=== PATIENT | female | born 1970 | race Caucasian/White ===

== ENCOUNTER 2017-08-29 08:36 | Inpatient (IN) | payer BC ==
[~2017-08-29 08:36] MED LIST: Acetaminophen 1,000 MG in Premix Bag 1 BAG IV SCH; Famotidine 20 MG/2 ML SDV IVPUSH SCH; Ketorolac 30 MG/ML SDV IVPUSH SCH; Ropivacaine 49.25 ML, Ketorolac 30 MG, EPINEPHrine 0.5 MG, cloNIDine 80 MCG in Sodium C... INJECT SCH; Scopolamine 1.5 MG Transdermal Patch TRDERM SCH; Tranexamic Acid 4,000 MG in Sodium Chloride 0.9% 100 ML IV SCH; ceFAZolin 2 GM in Premix Bag 1 BAG IV SCH; oxyCODONE ER 20 MG TAB.ER PO SCH
[2017-08-29] MEDS ORDERED: Ondansetron 4 MG/2 ML SDV ONE (09:12)
[2017-08-29] MEDS ORDERED: Propofol 200 MG/20 ML SDV ONE ×2 (09:12→11:45)
[2017-08-29] MEDS ORDERED: fentaNYL 100 MCG/2 ML SDV ONE (09:12)
[2017-08-29] MEDS ORDERED: Midazolam 1 MG/ML 2 ML SDV ONE (09:12)
[2017-08-29] MEDS: Lactated Ringers 1,000 ML IV SCH ×2 (10:00→14:36)
[2017-08-29] MEDS ORDERED: ceFAZolin 1 GM Vial ONE (10:39)
[2017-08-29] MEDS ORDERED: Sodium Chloride 0.9% 20 ML ONE (10:39)
[2017-08-29] MEDS ORDERED: Ondansetron 4 MG/2 ML SDV IV PRN (10:46)
[2017-08-29] MEDS ORDERED: Aluminum Hydroxide/Magnesium Hydroxide/Simethicone Susp 30 ML Cup PO PRN (10:47)
[2017-08-29] MEDS ORDERED: RANITIDINE HCL 150 MG PO PRN (10:49)
--- NOTE | 2017-08-29 10:49 | PCM.PREANE ---
Preanesthetic Assessment - Procedure Proposed Procedure: Right Total Knee Replacement - Anesthesia/Transfusion/Family Hx Anesthesia History: Prior Anesthesia Without Reaction Other Type of Anesthesia Reaction Comment: Denies any known problem in past Family History of Anesthesia Reaction: No Transfusion History: No Prior Transfusion(s) - Review of Systems General: No Symptoms Pulmonary: No Symptoms, Other (prior smoker) Cardiovascular: Other (HTN-treated) Gastrointestinal: Other (s/p bypass; still with morbid obesity) Neurological: Gait Disturbance (tayo to knee pain) Other: Reports: None - Physical Assessment NPO Status Date: 08/28/17 NPO Status Time: 23:00 O2 Sat by Pulse Oximetry: 99 Respiratory Rate: 16 Vital Signs: Last Vital Signs Temp 98.8 F 08/29/17 10:00 Pulse 74 08/29/17 10:00 Resp 16 08/29/17 10:00 BP 144/88 H 08/29/17 10:00 Pulse Ox 99 08/29/17 10:00 Height: 5 ft 3 in Weight: 190 lb ASA Class: 3 Mental Status: Alert & Oriented x3 Airway Class: Mallampati = 2 Dentition: Reports: Normal Dentition Thyro-Mental Finger Breadths: 3 Mouth Opening Finger Breadths: 3 ROM/Head Extension: Full Lungs: Clear to Auscultation, Normal Respiratory Effort Cardiovascular: Regular Rate, Regular Rhythm, No Murmurs - Lab Values: Laboratory Last Values Urine HCG, Qual NEGATIVE (NEGATIVE) 08/29/17 09:30 - Allergies Allergies/Adverse Reactions: Allergies Allergy/AdvReac Type Severity Reaction Status Date / Time latex Allergy Rash Verified 10/27/16 10:00 naproxen [From Naprosyn] Allergy Rash Verified 08/25/17 11:51 Ear drop solution (unknown Allergy Itching Uncoded 10/27/16 10:00 name) - Blood Blood Available: Yes Product(s) Available: PRBC (T and S) - Anesthesia Plan Pre-Op Medication Ordered: Other (per surgeon protocol) - Acknowledgements Anesthesia Type Planned: Spinal (with sedation; possible LMA/OET) Pt an Appropriate Candidate for the Planned Anesthesia: Yes Alternatives and Risks of Anesthesia Discussed w Pt/Guardian: Yes Pt/Guardian Understands and Agrees with Anesthesia Plan: Yes Additional Comments: consent signed PreAnesthesia Questionnaire - Past Health History Medical/Surgical History: Denies Medical/Surgical History HEENT History: Reports: Other (See Below) Other HEENT History: Diminished hearing bilaterally, wears glasses Cardiovascular History: Reports: High Cholesterol, Hypertension Other Cardiovascular History: Hx: chest pain last summer, added medication Metoprolol. Pt states her chest pain is better but reports and episode yesterday, EKG ordered to follow-up Gastrointestinal History: Reports: GERD Other Gastrointestinal History: hx: gastric ulcers at time I was using Chewing tobacco Genitourinary History: Reports: None Musculoskeletal History: Reports: Fracture, Osteoarthritis Other Musculoskeletal History: hx fx ribs Psychiatric History: Reports: Anxiety, Depression Endocrine/Metabolic History: Reports: Obesity/BMI 30+ Dermatologic History: Reports: Eczema Other Dermatologic History: eczema in the past - Past Surgical History Head Surgeries/Procedures: Reports: None GI Surgical History: Reports: Bariatric Procedure Other GI Surgeries/Procedures: Weight loss surgery. Musculoskeletal Surgical History: Reports: Arthroscopic Knee Other Musculoskeletal Surgeries/Procedures:: Carpal Tunnel Surgery. rt knee scope x2 - SUBSTANCE USE Smoking Status *Q: Former Smoker Tobacco Use Within Last Twelve Months: Cigarettes, Snuff/Dip Second Hand Smoke Exposure: No Recreational Drug Use History: No - HOME MEDS Home Medications: Home Meds Aspirin [Ecotrin] 1 tab PO DAILY 06/26/15 [History] Calcium Carbonate/Vitamin D3 [Calcium 600-Vit D3 400 Tablet] 2 tab CHEW DAILY [History] Metoprolol Succinate [Toprol XL] 0.5 tab PO ACBREAKFAST 06/26/15 [History] Multivitamin [Multi-Vitamin Daily] 1 tab PO DAILY 06/26/15 [History] Ascorbic Acid [Vitamin C] 1,000 mg PO BID 08/25/17 [History] Biotin 1,000 mcg PO DAILY 08/25/17 [History] Cyanocobalamin (Vitamin B12) [Vitamin B12] 1,000 mcg PO DAILY 08/25/17 [History] Lysine HCl [l-Lysine] 2 tab PO BID 08/25/17 [History] Ranitidine HCl [Zantac] 1 tab PO ASDIRECTED PRN 08/25/17 [History] - CURRENT (IN HOUSE) MEDS Current Meds: Current Medications Famotidine (Pepcid) 40 mg IVPUSH ONARRIVE JEN[facility]O Last Admin: 08/29/17 10:15 Dose: 40 mg Acetaminophen 1,000 mg/ Premix 100 mls @ 400 mls/hr IV ONARRIVE [facility] Last Admin: 08/29/17 10:15 Dose: 400 mls/hr Cefazolin Sodium/Dextrose 2 gm (/ Premix) 50 mls @ 100 mls/hr IV ONCALL [facility] Ropivacaine 49.25 ml/Ketorolac Tromethamine 30 mg/Epinephrine HCl 0.5 mg/ Clonidine HCl 80 mcg/ Sodium Chloride 100 mls @ 50 mls/min INJECT ASDIRECTED [facility] Lactated Ringer's (Ringers, Lactated) 1,000 mls @ 100 mls/hr IV ASDIRECTED [facility]EN[facility] Last Admin: 08/29/17 10:00 Dose: 100 mls/hr Tranexamic Acid 4,000 mg/ (Sodium Chloride) 140 mls @ 600 mls/hr IV ASDIRECTED [facility] Ketorolac Tromethamine (Toradol) 30 mg IVPUSH ONARRIVE [facility] Oxycodone HCl (Oxycontin) 20 mg PO ONARRIVE [facility] Last Admin: 08/29/17 10:24 Dose: 20 mg Scopolamine (Transderm-Scop) 1.5 mg TRDERM ONARRIVE [facility] Last Admin: 08/29/17 10:25 Dose: 1.5 mg Discontinued Medications Cefazolin Sodium (Ancef) Confirm Administered Dose 2 gm .ROUTE .STK-MED ONE Stop: 08/29/17 10:40 Fentanyl (Sublimaze) Confirm Administered Dose 100 mcg .ROUTE .STK-MED ONE Stop: 08/29/17 09:13 Acetaminophen (Ofirmev) Confirm Administered Dose 100 mls @ as directed IV .STK- MED ONE Stop: 08/29/17 09:36 Sodium Chloride (Normal Saline) Confirm Administered Dose 20 mls @ as directed .ROUTE .STK-MED ONE Stop: 08/29/17 10:40 Midazolam HCl (Versed 1 Mg/Ml) Confirm Administered Dose 2 mg .ROUTE .STK-MED ONE Stop: 08/29/17 09:13 Ondansetron HCl (Zofran) Confirm Administered Dose 4 mg .ROUTE .STK-MED ONE Stop: 08/29/17 09:13 Propofol (Diprivan 20 Ml) Confirm Administered Dose 200 mg .ROUTE .STK-MED ONE Stop: 08/29/17 09:13 Tranexamic Acid (Cyklokapron) Confirm Administered Dose 4,000 mg .ROUTE .[facility] ONE Stop: 08/29/17 09:07
[2017-08-29] MEDS ORDERED: ePHEDrine 50 MG/ML SDV ONE (11:17)
[2017-08-29] MEDS ORDERED: Famotidine 20 MG/2 ML SDV ONE (11:21)
--- NOTE | 2017-08-29 12:23 | PCM.OPNOTE ---
- General Post-Op/Procedure Note Date of Surgery/Procedure: 08/29/17 Operative Procedure(s): R TKA Post-Op Diagnosis: DJD R knee Anesthesia Technique: Moderate Sedation, Spinal Primary Surgeon: Arely Bautista School Secretary: Umu Benavidez School Secretary: Bandar White in mLs: 50 Condition: Good Free Text/Narrative:: Intake & Output 08/28/17 08/29/17 08/29/17 22:59 06:59 14:59 Output Total 300 Balance -300 tt=43 min #[id number]
--- NOTE | 2017-08-29 12:55 | PCM.POSTAN ---
POST ANESTHESIA ASSESSMENT - MENTAL STATUS Mental Status: Alert, Oriented - RESPIRATORY Respiratory Status: Respiratory Rate WNL, Airway Patent, O2 Saturation Stable, Supplemental Oxygen - CARDIOVASCULAR CV Status: Pulse Rate WNL, Blood Pressure Stable - GASTROINTESTINAL GI Status: No Symptoms - POST OP HYDRATION Hydration Status: Adequate & Stable
--- NOTE | 2017-08-29 15:25 | CR ---
EXAMINATION: Right knee HISTORY: Surgery COMPARISON: 07/21/2017 TECHNIQUE: 2 views FINDINGS/IMPRESSION: Right total knee hardware is demonstrated in good position and alignment. Postop erative soft tissue changes noted.
[2017-08-29] MEDS: Acetaminophen 1,000 MG in Premix Bag 1 BAG IV SCH ×2 (16:33→21:31)
[2017-08-29] MEDS: ceFAZolin 2 GM in Premix Bag 1 BAG IV SCH (18:07)
[2017-08-29] MEDS: oxyCODONE ER 20 MG TAB.ER PO SCH (21:12)
[2017-08-29] MEDS: Docusate Sodium 100 MG Cap PO SCH (21:12)
[2017-08-29] MEDS: HYDROmorphone 1 MG/ML Syringe IVPUSH PRN (22:50)
[2017-08-30] MEDS: Lactated Ringers 1,000 ML IV SCH (01:37)
[2017-08-30] MEDS: ceFAZolin 2 GM in Premix Bag 1 BAG IV SCH (02:21)
[2017-08-30] MEDS: oxyCODONE 5 MG Tab PO PRN ×4 (03:04→21:29)
[2017-08-30] MEDS: Acetaminophen 500 MG Tab PO SCH ×4 (04:37→21:30)
[2017-08-30] MEDS: Metoprolol Succinate 25 MG Tab.ER PO SCH (06:32)
[2017-08-30] MEDS: HYDROmorphone 1 MG/ML Syringe IVPUSH PRN ×2 (06:45→10:48)
[2017-08-30] MEDS: oxyCODONE ER 20 MG TAB.ER PO SCH ×2 (07:59→20:21)
[2017-08-30] MEDS: Apixaban 5 MG Tab PO SCH (07:59)
[2017-08-30] MEDS: Docusate Sodium 100 MG Cap PO SCH ×2 (07:59→20:21)
[2017-08-30] MEDS: Multivitamin Tab PO SCH (07:59)
--- NOTE | 2017-08-30 08:16 | PCM48HPAN ---
Post Anesthesia Note - EVALUATION WITHIN 48HRS OF ANESTHETIC Vital Signs in Normal Range: Yes Patient Participated in Evaluation: Yes Respiratory Function Stable: Yes Airway Patent: Yes Cardiovascular Function Stable: Yes Hydration Status Stable: Yes Pain Control Satisfactory: Yes Nausea and Vomiting Control Satisfactory: Yes Mental Status Recovered: Yes
[2017-08-30] MEDS ORDERED: Sodium Chloride 0.9% 2.5 ML Syringe FLUSH PRN (08:45)
[2017-08-30] MEDS ORDERED: Sodium Chloride 0.9% 10 ML Syringe FLUSH PRN (08:45)
--- NOTE | 2017-08-30 08:50 | PCM.SURGPN ---
<Umu Benavidez R - Last Filed: 08/30/17 08:45> - General Info Date of Service: 08/30/17 Date of Surgery/Procedure: 08/29/17 POD#: 1 Functional Status: Reports: Pain Controlled, Tolerating Diet, Ambulating - Review of Systems General: Reports: No Symptoms Pulmonary: Reports: No Symptoms Cardiovascular: Reports: No Symptoms Gastrointestinal: Reports: Nausea Musculoskeletal: Reports: Leg Pain Systems Review Comment:: pt up to chair for breakfast tolerating PO intake well pain controlled some nausea this morning but no vomiting ambulating well no specific concerns today - Patient Data Vitals - Most Recent: Last Vital Signs Temp 98.4 F 08/30/17 04:00 Pulse 58 L 08/30/17 06:32 Resp 17 08/30/17 04:00 BP 95/51 L 08/30/17 06:32 Pulse Ox 97 08/30/17 04:00 Weight - Most Recent: 86.183 kg I&O - Last 24 Hours: Intake & Output 08/29/17 08/30/17 08/30/17 22:59 06:59 14:59 Intake Total 200 1120 Output Total 850 Balance 200 270 Lab Results Last 24 Hrs: Laboratory Results - last 24 hr 08/29/17 08/29/17 08/30/17 Range/Units 09:30 09:50 06:56 Hgb 11.8 L (12.0-16.0) g/dL Hct 35.8 L (36.0-46.0) % Urine HCG, Qual NEGATIVE (NEGATIVE) Blood Type O POSITIVE Antibody Screen NEGATIVE Med Orders - Current: Current Medications Acetaminophen (Tylenol Extra Strength) 1,000 mg PO Q6H [facility] Last Admin: 08/30/17 04:37 Dose: 1,000 mg Al Hydroxide/Mg Hydroxide (Mag-Al Plus) 30 ml PO Q4H PRN PRN Reason: indigestion Apixaban (Eliquis) 5 mg PO DAILY [facility] Last Admin: 08/30/17 07:59 Dose: 5 mg Docusate Sodium (Colace) 100 mg PO BID [facility] Last Admin: 08/30/17 07:59 Dose: 100 mg Famotidine (Pepcid) 40 mg IVPUSH ONARRIVE [facility] Last Admin: 08/29/17 10:15 Dose: 40 mg Hydromorphone HCl (Dilaudid) 0.5 - 1 mg IVPUSH Q3H PRN PRN Reason: Pain Last Admin: 08/30/17 06:45 Dose: 0.5 mg Acetaminophen 1,000 mg/ Premix 100 mls @ 400 mls/hr IV ONARRIVE [facility] Last Admin: 08/29/17 10:15 Dose: 400 mls/hr Cefazolin Sodium/Dextrose 2 gm (/ Premix) 50 mls @ 100 mls/hr IV ONCALL [facility] Ropivacaine 49.25 ml/Ketorolac Tromethamine 30 mg/Epinephrine HCl 0.5 mg/ Clonidine HCl 80 mcg/ Sodium Chloride 100 mls @ 50 mls/min INJECT ASDIRECTED [facility] Lactated Ringer's (Ringers, Lactated) 1,000 mls @ 100 mls/hr IV ASDIRECTED [facility] Last Admin: 08/30/17 01:37 Dose: 100 mls/hr Tranexamic Acid 4,000 mg/ (Sodium Chloride) 140 mls @ 600 mls/hr IV ASDIRECTED [facility] Ketorolac Tromethamine (Toradol) 30 mg IVPUSH ONARRIVE [facility] Metoprolol Succinate (Toprol Xl) 25 mg PO ACBREAKFAST [facility] Last Admin: 08/30/17 06:32 Dose: Not Given Multivitamins/Minerals/Vitamin C (Tab-A-Rafaela) 1 tab PO DAILY [facility] Last Admin: 08/30/17 07:59 Dose: 1 tab Ondansetron HCl (Zofran) 4 mg IV Q6HR PRN PRN Reason: NAUSEA/VOMITING Oxycodone HCl (Oxycontin) 20 mg PO ONARRIVE [facility] Last Admin: 08/29/17 10:24 Dose: 20 mg Oxycodone HCl (Oxycodone) 5 - 10 mg PO Q4H PRN PRN Reason: Pain Last Admin: 08/30/17 03:04 Dose: 10 mg Oxycodone HCl (Oxycontin) 20 mg PO Q12HR [facility] Last Admin: 08/30/17 07:59 Dose: 20 mg Ranitidine Hcl 150 (Mg 1 Tab) 1 each PO ASDIRECTED PRN PRN Reason: Heartburn Scopolamine (Transderm-Scop) 1.5 mg TRDERM ONARRIVE [facility] Last Admin: 08/29/17 10:25 Dose: 1.5 mg Sodium Chloride (Saline Flush) 10 ml FLUSH ASDIRECTED PRN PRN Reason: Keep Vein Open Sodium Chloride (Saline Flush) 2.5 ml FLUSH ASDIRECTED PRN PRN Reason: Keep Vein Open Discontinued Medications Cefazolin Sodium (Ancef) Confirm Administered Dose 2 gm .ROUTE .STK-MED ONE Stop: 08/29/17 10:40 Ephedrine Sulfate (Ephedrine Sulfate) Confirm Administered Dose 50 mg .ROUTE .STK-MED ONE Stop: 08/29/17 11:18 Famotidine (Pepcid) Confirm Administered Dose 20 mg .ROUTE .STK-MED ONE Stop: 08/29/17 11:22 Last Admin: 08/29/17 13:42 Dose: Not Given Fentanyl (Sublimaze) Confirm Administered Dose 100 mcg .ROUTE .STK-MED ONE Stop: 08/29/17 09:13 Acetaminophen (Ofirmev) Confirm Administered Dose 100 mls @ as directed IV .STK- MED ONE Stop: 08/29/17 09:36 Sodium Chloride (Normal Saline) Confirm Administered Dose 20 mls @ as directed .ROUTE .STK-MED ONE Stop: 08/29/17 10:40 Acetaminophen 1,000 mg/ Premix 100 mls @ 400 mls/hr IV Q6H [facility] Stop: 08/29/17 22:44 Last Infusion: 08/29/17 21:46 Dose: Infused Cefazolin Sodium/Dextrose 2 gm (/ Premix) 50 mls @ 100 mls/hr IV Q8H [facility] Stop: 08/30/17 02:59 Last Infusion: 08/30/17 02:51 Dose: Infused Midazolam HCl (Versed 1 Mg/Ml) Confirm Administered Dose 2 mg .ROUTE .STK-MED ONE Stop: 08/29/17 09:13 Ondansetron HCl (Zofran) Confirm Administered Dose 4 mg .ROUTE .STK-MED ONE Stop: 08/29/17 09:13 Propofol (Diprivan 20 Ml) Confirm Administered Dose 200 mg .ROUTE .STK-MED ONE Stop: 08/29/17 09:13 Propofol (Diprivan 20 Ml) Confirm Administered Dose 200 mg .ROUTE .STK-MED ONE Stop: 08/29/17 11:46 Tranexamic Acid (Cyklokapron) Confirm Administered Dose 4,000 mg .ROUTE .STK- MED ONE Stop: 08/29/17 09:07 - Exam Wound/Incisions: Dressing Dry and Intact. No: Drainage, Erythema General: Alert, Oriented Cardiovascular: Regular Rate, Regular Rhythm Extremities: Other (exam RLE - at/ehl/gastroc 5/5, dp 2+, sensation intact distally) Physical Findings Comment:: vss, afeb (hypotensive on AM rounding vitals, beta good held) UO 1501mL hgb 11.8 - Problem List Review Problem List Initiated/Reviewed/Updated: Yes - My Orders Last 24 Hours: Active Orders 24 hr Category Date Time Status Activity as Tolerated [RC] .Routine Care 08/29/17 10:46 Active Dressing Change [Wound Care] [RC] ASDIRECTED Care 08/29/17 10:46 Active Insert Urinary Catheter [OM.PC] Routine Care 08/29/17 08:00 Ordered Intake and Output [RC] ASDIRECTED Care 08/29/17 10:45 Active Neurovascular Check [RC] Q2HR Care 08/29/17 10:45 Active Notify Provider Vital Signs [RC] ASDIRECTED Care 08/29/17 10:46 Active RT Incentive Spirometry [RC] ASDIRECTED Care 08/29/17 10:45 Active Urinary Catheter Assessment [RC] ASDIRECTED Care 08/29/17 08:00 Active Urinary Catheter Removal [RC] Per Unit Routine Care 08/30/17 08:45 Ordered Vital Signs [RC] Q4H Care 08/29/17 10:45 Active PT Evaluation and Treatment [CONS] Routine Cons 08/29/17 10:45 Active HEMOGLOBIN/HEMATOCRIT,HH [HEME] DAILY Lab 08/31/17 06:00 Ordered HEMOGLOBIN/HEMATOCRIT,HH [HEME] DAILY Lab 09/01/17 06:00 Ordered Acetaminophen [Tylenol Extra Strength] Med 08/30/17 04:30 Active 1,000 mg PO Q6H Alum Hydrox/Mag Hydrox/Simeth [Mag-Al Plus] Med 08/29/17 10:47 Active 30 ml PO Q4H PRN Apixaban [Eliquis] Med 08/30/17 09:00 Active 5 mg PO DAILY Docusate Sodium [Colace] Med 08/29/17 21:00 Active 100 mg PO BID HYDROmorphone [Dilaudid] Med 08/29/17 10:47 Active 0.5 - 1 mg IVPUSH Q3H PRN Metoprolol Succinate [Toprol XL] Med 08/30/17 07:30 Active 25 mg PO ACBREAKFAST Multivitamins [Tab-A-Rafaela] Med 08/30/17 09:00 Active 1 tab PO DAILY Ondansetron [Zofran] Med 08/29/17 10:46 Active 4 mg IV Q6HR PRN Patient's Own Medication [Ptom] Med 08/29/17 10:49 Active 1 each PO ASDIRECTED PRN Ropivacaine [Naropin 0.2%] 49.25 ml Med 08/29/17 08:00 Active Ketorolac [Toradol] 30 mg EPINEPHrine [Adrenalin 1:1000] 0.5 mg cloNIDine [Duraclon] 80 mcg Sodium Chloride 0.9% [Normal Saline] 48.45 ml INJECT ASDIRECTED Sodium Chloride 0.9% [Saline Flush] Med 08/30/17 08:45 Ordered 10 ml FLUSH ASDIRECTED PRN Sodium Chloride 0.9% [Saline Flush] Med 08/30/17 08:45 Ordered 2.5 ml FLUSH ASDIRECTED PRN Tranexamic Acid [Cyklokapron] 4,000 mg Med 08/29/17 08:00 Active Sodium Chloride 0.9% [Normal Saline] 100 ml IV ASDIRECTED ceFAZolin [Ancef] 2 gm Med 08/29/17 08:00 Active Premix Bag 1 bag IV ONCALL oxyCODONE Med 08/29/17 10:47 Active 5 - 10 mg PO Q4H PRN oxyCODONE ER [OxyCONTIN] Med 08/29/17 21:00 Active 20 mg PO Q12HR Convert IV to Saline Lock [OM.PC] Routine Oth 08/30/17 08:45 Ordered Ice Therapy [OM.PC] Routine Oth 08/29/17 10:45 Ordered Medication Orders Acetaminophen (Tylenol Extra Strength) 1,000 mg PO Q6H [facility] Last Admin: 08/30/17 04:37 Dose: 1,000 mg Al Hydroxide/Mg Hydroxide (Mag-Al Plus) 30 ml PO Q4H PRN PRN Reason: indigestion Apixaban (Eliquis) 5 mg PO DAILY [facility] Last Admin: 08/30/17 07:59 Dose: 5 mg Docusate Sodium (Colace) 100 mg PO BID [facility] Last Admin: 08/30/17 07:59 Dose: 100 mg Admin: 08/29/17 21:12 Dose: 100 mg Famotidine (Pepcid) 40 mg IVPUSH ONARRIVE [facility] Last Admin: 08/29/17 10:15 Dose: 40 mg Hydromorphone HCl (Dilaudid) 0.5 - 1 mg IVPUSH Q3H PRN PRN Reason: Pain Last Admin: 08/30/17 06:45 Dose: 0.5 mg Admin: 08/29/17 22:50 Dose: 1 mg Acetaminophen 1,000 mg/ Premix 100 mls @ 400 mls/hr IV ONARRIVE [facility] Last Admin: 08/29/17 10:15 Dose: 400 mls/hr Cefazolin Sodium/Dextrose 2 gm (/ Premix) 50 mls @ 100 mls/hr IV ONCALL [facility] Ropivacaine 49.25 ml/Ketorolac Tromethamine 30 mg/Epinephrine HCl 0.5 mg/ Clonidine HCl 80 mcg/ Sodium Chloride 100 mls @ 50 mls/min INJECT ASDIRECTED [facility] Lactated Ringer's (Ringers, Lactated) 1,000 mls @ 100 mls/hr IV ASDIRECTED [facility] Last Admin: 08/30/17 01:37 Dose: 100 mls/hr Infusion: 08/30/17 00:36 Dose: 100 mls/hr Admin: 08/29/17 14:36 Dose: 100 mls/hr Infusion: 08/29/17 14:36 Dose: 100 mls/hr Admin: 08/29/17 10:00 Dose: 100 mls/hr Tranexamic Acid 4,000 mg/ (Sodium Chloride) 140 mls @ 600 mls/hr IV ASDIRECTED [facility] Ketorolac Tromethamine (Toradol) 30 mg IVPUSH ONARRIVE [facility] Metoprolol Succinate (Toprol Xl) 25 mg PO ACBREAKFAST [facility] Last Admin: 08/30/17 06:32 Dose: Not Given Multivitamins/Minerals/Vitamin C (Tab-A-Rafaela) 1 tab PO DAILY [facility] Last Admin: 08/30/17 07:59 Dose: 1 tab Ondansetron HCl (Zofran) 4 mg IV Q6HR PRN PRN Reason: NAUSEA/VOMITING Oxycodone HCl (Oxycontin) 20 mg PO ONARRIVE [facility] Last Admin: 08/29/17 10:24 Dose: 20 mg Oxycodone HCl (Oxycodone) 5 - 10 mg PO Q4H PRN PRN Reason: Pain Last Admin: 08/30/17 03:04 Dose: 10 mg Oxycodone HCl (Oxycontin) 20 mg PO Q12HR [facility] Last Admin: 08/30/17 07:59 Dose: 20 mg Admin: 08/29/17 21:12 Dose: 20 mg Ranitidine Hcl 150 (Mg 1 Tab) 1 each PO ASDIRECTED PRN PRN Reason: Heartburn Scopolamine (Transderm-Scop) 1.5 mg TRDERM ONARRIVE [facility] Last Admin: 08/29/17 10:25 Dose: 1.5 mg Sodium Chloride (Saline Flush) 10 ml FLUSH ASDIRECTED PRN PRN Reason: Keep Vein Open Sodium Chloride (Saline Flush) 2.5 ml FLUSH ASDIRECTED PRN PRN Reason: Keep Vein Open - Assessment Assessment (Free Text/Narrative):: POD#1 R TKA acute posthemorrhagic anemia - Plan Plan (Free Text/Narrative):: DC IV fluids DC santos continue pain management Eliquis 5mg PO daily as DVT prophylaxis (hx gastric surgery, aspirin contraindicated) PT today d/ch to home tomorrow after PT will need dressing change prior to d/ch <Arely Bautista R - Last Filed: 08/30/17 17:02> - Patient Data Vitals - Most Recent: Last Vital Signs Temp 97.8 F 08/30/17 16:00 Pulse 78 08/30/17 16:00 Resp 22 H 08/30/17 16:00 BP 132/66 08/30/17 16:00 Pulse Ox 97 08/30/17 16:00 I&O - Last 24 Hours: Intake & Output 08/30/17 08/30/17 08/30/17 06:59 14:59 22:59 Intake Total 2120 300 Output Total 850 Balance 1270 300 Lab Results Last 24 Hrs: Laboratory Results - last 24 hr 08/30/17 Range/Units 06:56 Hgb 11.8 L (12.0-16.0) g/dL Hct 35.8 L (36.0-46.0) % Med Orders - Current: Current Medications Acetaminophen (Tylenol Extra Strength) 1,000 mg PO Q6H [facility] Last Admin: 08/30/17 16:14 Dose: 1,000 mg Al Hydroxide/Mg Hydroxide (Mag-Al Plus) 30 ml PO Q4H PRN PRN Reason: indigestion Apixaban (Eliquis) 5 mg PO DAILY [facility] Last Admin: 08/30/17 07:59 Dose: 5 mg Docusate Sodium (Colace) 100 mg PO BID [facility] Last Admin: 08/30/17 07:59 Dose: 100 mg Famotidine (Pepcid) 40 mg IVPUSH ONARRIVE [facility] Last Admin: 08/29/17 10:15 Dose: 40 mg Hydromorphone HCl (Dilaudid) 0.5 - 1 mg IVPUSH Q3H PRN PRN Reason: Pain Last Admin: 08/30/17 10:48 Dose: 1 mg Acetaminophen 1,000 mg/ Premix 100 mls @ 400 mls/hr IV ONARRIVE [facility] Last Admin: 08/29/17 10:15 Dose: 400 mls/hr Cefazolin Sodium/Dextrose 2 gm (/ Premix) 50 mls @ 100 mls/hr IV ONCALL [facility] Ropivacaine 49.25 ml/Ketorolac Tromethamine 30 mg/Epinephrine HCl 0.5 mg/ Clonidine HCl 80 mcg/ Sodium Chloride 100 mls @ 50 mls/min INJECT ASDIRECTED [facility] Tranexamic Acid 4,000 mg/ (Sodium Chloride) 140 mls @ 600 mls/hr IV ASDIRECTED [facility] Ketorolac Tromethamine (Toradol) 30 mg IVPUSH ONARRIVE [facility] Metoprolol Succinate (Toprol Xl) 25 mg PO ACBREAKFAST [facility] Last Admin: 08/30/17 06:32 Dose: Not Given Multivitamins/Minerals/Vitamin C (Tab-A-Rafaela) 1 tab PO DAILY [facility] Last Admin: 08/30/17 07:59 Dose: 1 tab Ondansetron HCl (Zofran) 4 mg IV Q6HR PRN PRN Reason: NAUSEA/VOMITING Oxycodone HCl (Oxycontin) 20 mg PO ONARRIVE [facility] Last Admin: 08/29/17 10:24 Dose: 20 mg Oxycodone HCl (Oxycodone) 5 - 10 mg PO Q4H PRN PRN Reason: Pain Last Admin: 08/30/17 14:22 Dose: 10 mg Oxycodone HCl (Oxycontin) 20 mg PO Q12HR [facility] Last Admin: 08/30/17 07:59 Dose: 20 mg Ranitidine Hcl 150 (Mg 1 Tab) 1 each PO ASDIRECTED PRN PRN Reason: Heartburn Scopolamine (Transderm-Scop) 1.5 mg TRDERM ONARRIVE [facility] Last Admin: 08/29/17 10:25 Dose: 1.5 mg Sodium Chloride (Saline Flush) 10 ml FLUSH ASDIRECTED PRN PRN Reason: Keep Vein Open Sodium Chloride (Saline Flush) 2.5 ml FLUSH ASDIRECTED PRN PRN Reason: Keep Vein Open Discontinued Medications Cefazolin Sodium (Ancef) Confirm Administered Dose 2 gm .ROUTE .STK-MED ONE Stop: 08/29/17 10:40 Ephedrine Sulfate (Ephedrine Sulfate) Confirm Administered Dose 50 mg .ROUTE .STK-MED ONE Stop: 08/29/17 11:18 Famotidine (Pepcid) Confirm Administered Dose 20 mg .ROUTE .STK-MED ONE Stop: 08/29/17 11:22 Last Admin: 08/29/17 13:42 Dose: Not Given Fentanyl (Sublimaze) Confirm Administered Dose 100 mcg .ROUTE .STK-MED ONE Stop: 08/29/17 09:13 Lactated Ringer's (Ringers, Lactated) 1,000 mls @ 100 mls/hr IV ASDIRECTED [facility] Last Admin: 08/30/17 01:37 Dose: 100 mls/hr Acetaminophen (Ofirmev) Confirm Administered Dose 100 mls @ as directed IV .STK- MED ONE Stop: 08/29/17 09:36 Sodium Chloride (Normal Saline) Confirm Administered Dose 20 mls @ as directed .ROUTE .STK-MED ONE Stop: 08/29/17 10:40 Acetaminophen 1,000 mg/ Premix 100 mls @ 400 mls/hr IV Q6H [facility] Stop: 08/29/17 22:44 Last Infusion: 08/29/17 21:46 Dose: Infused Cefazolin Sodium/Dextrose 2 gm (/ Premix) 50 mls @ 100 mls/hr IV Q8H [facility] Stop: 08/30/17 02:59 Last Infusion: 08/30/17 02:51 Dose: Infused Midazolam HCl (Versed 1 Mg/Ml) Confirm Administered Dose 2 mg .ROUTE .STK-MED ONE Stop: 08/29/17 09:13 Ondansetron HCl (Zofran) Confirm Administered Dose 4 mg .ROUTE .STK-MED ONE Stop: 08/29/17 09:13 Propofol (Diprivan 20 Ml) Confirm Administered Dose 200 mg .ROUTE .STK-MED ONE Stop: 08/29/17 09:13 Propofol (Diprivan 20 Ml) Confirm Administered Dose 200 mg .ROUTE .STK-MED ONE Stop: 08/29/17 11:46 Tranexamic Acid (Cyklokapron) Confirm Administered Dose 4,000 mg .ROUTE .STK- MED ONE Stop: 08/29/17 09:07 - My Orders Last 24 Hours: Active Orders 24 hr Category Date Time Status Urinary Catheter Removal [RC] Per Unit Routine Care 08/30/17 08:45 Active HEMOGLOBIN/HEMATOCRIT,HH [HEME] DAILY Lab 08/31/17 06:00 Ordered HEMOGLOBIN/HEMATOCRIT,HH [HEME] DAILY Lab 09/01/17 06:00 Ordered Acetaminophen [Tylenol Extra Strength] Med 08/30/17 04:30 Active 1,000 mg PO Q6H Apixaban [Eliquis] Med 08/30/17 09:00 Active 5 mg PO DAILY Docusate Sodium [Colace] Med 08/29/17 21:00 Active 100 mg PO BID Metoprolol Succinate [Toprol XL] Med 08/30/17 07:30 Active 25 mg PO ACBREAKFAST Multivitamins [Tab-A-Rafaela] Med 08/30/17 09:00 Active 1 tab PO DAILY Sodium Chloride 0.9% [Saline Flush] Med 08/30/17 08:45 Active 10 ml FLUSH ASDIRECTED PRN Sodium Chloride 0.9% [Saline Flush] Med 08/30/17 08:45 Active 2.5 ml FLUSH ASDIRECTED PRN oxyCODONE ER [OxyCONTIN] Med 08/29/17 21:00 Active 20 mg PO Q12HR Convert IV to Saline Lock [OM.PC] Routine Oth 08/30/17 08:45 Ordered Medication Orders Acetaminophen (Tylenol Extra Strength) 1,000 mg PO Q6H [facility] Last Admin: 08/30/17 16:14 Dose: 1,000 mg Admin: 08/30/17 10:06 Dose: 1,000 mg Admin: 08/30/17 04:37 Dose: 1,000 mg Al Hydroxide/Mg Hydroxide (Mag-Al Plus) 30 ml PO Q4H PRN PRN Reason: indigestion Apixaban (Eliquis) 5 mg PO DAILY [facility] Last Admin: 08/30/17 07:59 Dose: 5 mg Docusate Sodium (Colace) 100 mg PO BID [facility] Last Admin: 08/30/17 07:59 Dose: 100 mg Admin: 08/29/17 21:12 Dose: 100 mg Famotidine (Pepcid) 40 mg IVPUSH ONARRIVE [facility] Last Admin: 08/29/17 10:15 Dose: 40 mg Hydromorphone HCl (Dilaudid) 0.5 - 1 mg IVPUSH Q3H PRN PRN Reason: Pain Last Admin: 08/30/17 10:48 Dose: 1 mg Admin: 08/30/17 06:45 Dose: 0.5 mg Admin: 08/29/17 22:50 Dose: 1 mg Acetaminophen 1,000 mg/ Premix 100 mls @ 400 mls/hr IV ONARRIVE [facility] Last Admin: 08/29/17 10:15 Dose: 400 mls/hr Cefazolin Sodium/Dextrose 2 gm (/ Premix) 50 mls @ 100 mls/hr IV ONCALL [facility] Ropivacaine 49.25 ml/Ketorolac Tromethamine 30 mg/Epinephrine HCl 0.5 mg/ Clonidine HCl 80 mcg/ Sodium Chloride 100 mls @ 50 mls/min INJECT ASDIRECTED [facility] Tranexamic Acid 4,000 mg/ (Sodium Chloride) 140 mls @ 600 mls/hr IV ASDIRECTED [facility] Ketorolac Tromethamine (Toradol) 30 mg IVPUSH ONARRIVE [facility] Metoprolol Succinate (Toprol Xl) 25 mg PO ACBREAKFAST [facility] Last Admin: 08/30/17 06:32 Dose: Not Given Multivitamins/Minerals/Vitamin C (Tab-A-Rafaela) 1 tab PO DAILY [facility] Last Admin: 08/30/17 07:59 Dose: 1 tab Ondansetron HCl (Zofran) 4 mg IV Q6HR PRN PRN Reason: NAUSEA/VOMITING Oxycodone HCl (Oxycontin) 20 mg PO ONARRIVE [facility] Last Admin: 08/29/17 10:24 Dose: 20 mg Oxycodone HCl (Oxycodone) 5 - 10 mg PO Q4H PRN PRN Reason: Pain Last Admin: 08/30/17 14:22 Dose: 10 mg Admin: 08/30/17 10:00 Dose: 10 mg Admin: 08/30/17 03:04 Dose: 10 mg Oxycodone HCl (Oxycontin) 20 mg PO Q12HR [facility] Last Admin: 08/30/17 07:59 Dose: 20 mg Admin: 08/29/17 21:12 Dose: 20 mg Ranitidine Hcl 150 (Mg 1 Tab) 1 each PO ASDIRECTED PRN PRN Reason: Heartburn Scopolamine (Transderm-Scop) 1.5 mg TRDERM ONARRIVE [facility] Last Admin: 08/29/17 10:25 Dose: 1.5 mg Sodium Chloride (Saline Flush) 10 ml FLUSH ASDIRECTED PRN PRN Reason: Keep Vein Open Sodium Chloride (Saline Flush) 2.5 ml FLUSH ASDIRECTED PRN PRN Reason: Keep Vein Open - Plan Plan (Free Text/Narrative):: 1300 Patient seen and examined. Agree with the above note. Patient states she is doing well. Her pain has been well-controlled. She continues to improve with physical therapy. Her hemoglobin remained stable. Exam of the knee shows the dressing to be intact. AT/EHL/gastroc 5/5. Sensation grossly intact. DP/PT pulses 2+. 1. Continue physical therapy 2. Continue current pain management 3. Eliquis for DVT prophylaxis 4. Anticipate discharge home tomorrow
--- NOTE | 2017-08-30 11:36 | OR ---
SURGEON: Arely Bautista MD DATE OF PROCEDURE: 08/29/2017 PREOPERATIVE DIAGNOSIS: Degenerative joint disease, right knee, tricompartmental. POSTOPERATIVE DIAGNOSIS: Degenerative joint disease, right knee, tricompartmental. PROCEDURE: Right total knee arthroplasty. APPLICATION SUPPORT LEAD: Umu Benavidez PA-C and Bandar White PA-C. ANESTHESIA: Spinal with sedation. ESTIMATED BLOOD LOSS: 50 mL. TOURNIQUET TIME: 43 minutes. COMPLICATIONS: None. DVT PROPHYLAXIS: PAS boot and SUGEY hose to the nonoperative leg. IMPLANTS USED: Christen Persona femoral component size 6 standard (LPS), tibial component size F, 11 mm all-polyethylene articular surface, and 32 mm all-polyethylene patella. 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 No significant synovitis was noted. BRIEF HISTORY: No is a 47-year-old female, who has had complaint of progressive right knee pain. She has had conservative treatment including a right knee arthroscopy, which did show evidence of grade 4 chondromalacia. Due to her lack of response to conservative treatment, I did recommend surgical intervention. The risks and goals of procedure were discussed with the patient and were documented preoperatively. She agreed to proceed. DESCRIPTION OF PROCEDURE: The patient was properly identified and brought to the operating room. The patient was then transferred from the operating room cart and placed on the operating table in a supine position. Anesthesia was administered by the anesthesia staff. After adequate anesthesia was obtained, a well-padded tourniquet was applied to the surgical lower extremity. Ta catheter was placed. The lower extremity was then prepped in standard fashion using ChloraPrep solution. It was then sterilely draped. A time-out was performed to ensure correct site and procedure. Preoperative antibiotics were given along with one gram tranexamic acid IV. The surgical site had been marked preoperatively. An Esmarch was used to exsanguinate the right lower extremity and the tourniquet was inflated. An incision was made over the anterior aspect of the knee. The subcutaneous tissues were dissected down to the level of the fascia. A medial parapatellar approach to the knee was made. A portion of the infrapatellar fat pad was then excised. The distal femur was then exposed. The step reamer was used to gain access to the intramedullary canal. This was placed in 6 degrees of valgus. Pins were placed. The distal femoral cutting block was placed and the distal femoral cut was made. Instrumentation was then removed. The femur was then sized. Both Whitesides' line and the epicondylar axis were then marked with electrocautery. The 4-in-1 cutting block was placed. This was placed in a slightly externally rotated position, which corresponded well with the previously drawn lines. The cutting guide was then pinned into position. An Jef wing guide was used to check the depth of resection of our anterior condylar cut and it was felt that no notching would occur. The anterior condylar cut was then made followed by the posterior condylar cut. Both the posterior chamfer and anterior chamfer cuts were then made. The cutting block was then removed along with the excess bony remnants. We then turned our attention to the tibia. The anterior cruciate ligament and posterior cruciate ligament were released and a posterior cruciate ligament retractor was placed to allow the tibia to be pulled anteriorly. The tibial extra-medullary guide was then positioned. We chose to take approximately 2 mm off of the lowest side. The proximal tibia cutting guide was then placed and screwed into position. The proximal tibial resection was then made with care being taken to protect the patellar tendon. The bony resection was then removed. The remainder of the medial and lateral meniscus were then excised. Care was taken to protect the popliteus tendon. The tibia was then sized to the appropriate size. The distal femur was then elevated. The posterior capsule was stripped off the distal femur both medially and laterally. The posterior capsule along with the medial and lateral gutters were then injected with a standard mixture consisting of clonidine, epinephrine, Toradol, and opivacaine, unless any allergies were found preoperatively. The femoral component was then placed onto the distal femur in a slightly lateral position. This fit the femur well. A box cut was then made without difficulty. This was then removed. The tibial trial along with the polyethylene liner was then placed. The knee came easily into full extension and was stable to varus and valgus stressing both in full extension and flexion. Any additional releases were performed at this time. We then returned our attention to the patella. The patella was everted and towel clamps were used to hold the patella in position. It was resected to a 15 millimeter thickness. It was then sized to the appropriate size. It was prepared in the usual fashion after placing the predetermined size clamps. This was placed in a slightly superior and medial position. The clamp was then removed. The patellar trial button was placed. The knee was taken through a range of motion using the no-touch technique. The patella tracked centrally. A drop jude was then placed to check alignment. All instruments were then removed from the knee. The tibial sizer was then placed on the tibia. The tibia was prepared in the usual fashion using the reamer and broach. This was then removed. All bony surfaces were copiously irrigated with Pulsavac solution. They were then suctioned dry. Cement was prepared on the back table in the usual manner. Antibiotic impregnated cement was used if the patient was diabetic. Once it was prepared, the bone ends were again suctioned dry. The tibia was cemented into place first. This was malleted into position. Excess cement was then cleared. The femur was then placed in a similar manner. We placed the polyethylene trial into place and the knee was brought into full extension. An axial load was placed while keeping the knee in full extension. The patella button was also cemented into position and the clamp was used to hold this in place as the cement was allowed to cure. The wound was copiously irrigated with saline using a pulsavac vocal music teacher. Following this, 1 gram of tranexamic acid was applied topically to the wound during the curing process. After we had adequate curing of the cement, the knee was again taken through a range of motion. The size of the polyethylene was then determined. The polyethylene trial was then removed. The tibial tray was suctioned to make sure there was no remaining soft tissue or cement. Excess cement was cleared from around the edges of the prosthesis as well. The tourniquet was then deflated. We were able to observe for any excess bleeding and none was noted. Electrocautery was used to maintain hemostasis. An additional gram of tranexamic acid was given IV. The retractors were again placed and the predetermined polyethylene was then placed. This was locked into position without difficulty. The knee was again taken through a range of motion with no change from the prior exam. The fascial layer was closed with Number One Vicryl. The subcutaneous tissues were closed with 2-0 Vicryl. The skin was closed with suellen. Xeroform gauze was placed over the wound and a bulky dressing was applied. The patient was then awakened from anesthesia and transferred back to the operating room cart. They were brought to the recovery room in stable condition. All needle and sponge counts were correct. PRIMARY SURGEON: SECONDARY SURGEON: REASON APPLICATION SUPPORT LEAD WAS NECESSARY: ROLE OF APPLICATION SUPPORT LEAD: LAMONTE MIRZA /[id number]
[2017-08-31] MEDS: oxyCODONE 5 MG Tab PO PRN (02:30)
[2017-08-31] MEDS: Acetaminophen 500 MG Tab PO SCH ×2 (05:30→09:54)
[2017-08-31] MEDS: Multivitamin Tab PO SCH (08:08)
[2017-08-31] MEDS: Apixaban 5 MG Tab PO SCH (08:08)
[2017-08-31] MEDS: oxyCODONE ER 20 MG TAB.ER PO SCH (08:08)
[2017-08-31] MEDS: Docusate Sodium 100 MG Cap PO SCH (08:08)
[2017-08-31] MEDS: Metoprolol Succinate 25 MG Tab.ER PO SCH (08:09)
--- NOTE | 2017-08-31 09:09 | PCM.SURGPN ---
<Umu Benavidez R - Last Filed: 08/31/17 09:11> - General Info Date of Service: 08/31/17 Date of Surgery/Procedure: 08/29/17 POD#: 2 Functional Status: Reports: Pain Controlled, Tolerating Diet, Ambulating, Urinating - Review of Systems General: Reports: No Symptoms Pulmonary: Reports: No Symptoms Cardiovascular: Reports: No Symptoms Gastrointestinal: Reports: Nausea Systems Review Comment:: pt up to chair doing well tolerating PO intake, still some nausea pain controlled feels comfortable with discharge to home today - Patient Data Vitals - Most Recent: Last Vital Signs Temp 98 F 08/31/17 08:30 Pulse 70 08/31/17 08:30 Resp 20 08/31/17 08:30 BP 111/55 L 08/31/17 08:30 Pulse Ox 95 08/31/17 08:30 Weight - Most Recent: 86.183 kg I&O - Last 24 Hours: Intake & Output 08/30/17 08/31/17 08/31/17 22:59 06:59 14:59 Intake Total 540 1400 Output Total 350 1000 Balance 190 400 Lab Results Last 24 Hrs: Laboratory Results - last 24 hr 08/31/17 Range/Units 06:04 Hgb 11.0 L (12.0-16.0) g/dL Hct 33.1 L (36.0-46.0) % Med Orders - Current: Current Medications Acetaminophen (Tylenol Extra Strength) 1,000 mg PO Q6H [facility] Last Admin: 08/31/17 05:30 Dose: 1,000 mg Al Hydroxide/Mg Hydroxide (Mag-Al Plus) 30 ml PO Q4H PRN PRN Reason: indigestion Apixaban (Eliquis) 5 mg PO DAILY [facility] Last Admin: 08/31/17 08:08 Dose: 5 mg Docusate Sodium (Colace) 100 mg PO BID [facility] Last Admin: 08/31/17 08:08 Dose: 100 mg Famotidine (Pepcid) 40 mg IVPUSH ONARRIVE [facility] Last Admin: 08/29/17 10:15 Dose: 40 mg Hydromorphone HCl (Dilaudid) 0.5 - 1 mg IVPUSH Q3H PRN PRN Reason: Pain Last Admin: 08/30/17 10:48 Dose: 1 mg Acetaminophen 1,000 mg/ Premix 100 mls @ 400 mls/hr IV ONARRIVE [facility] Last Admin: 08/29/17 10:15 Dose: 400 mls/hr Cefazolin Sodium/Dextrose 2 gm (/ Premix) 50 mls @ 100 mls/hr IV ONCALL [facility] Ropivacaine 49.25 ml/Ketorolac Tromethamine 30 mg/Epinephrine HCl 0.5 mg/ Clonidine HCl 80 mcg/ Sodium Chloride 100 mls @ 50 mls/min INJECT ASDIRECTED [facility] Tranexamic Acid 4,000 mg/ (Sodium Chloride) 140 mls @ 600 mls/hr IV ASDIRECTED [facility] Ketorolac Tromethamine (Toradol) 30 mg IVPUSH ONARRIVE [facility] Metoprolol Succinate (Toprol Xl) 25 mg PO ACBREAKFAST [facility] Last Admin: 08/31/17 08:09 Dose: 25 mg Multivitamins/Minerals/Vitamin C (Tab-A-Rafaela) 1 tab PO DAILY [facility] Last Admin: 08/31/17 08:08 Dose: 1 tab Ondansetron HCl (Zofran) 4 mg IV Q6HR PRN PRN Reason: NAUSEA/VOMITING Last Admin: 08/31/17 02:34 Dose: 4 mg Oxycodone HCl (Oxycontin) 20 mg PO ONARRIVE [facility] Last Admin: 08/29/17 10:24 Dose: 20 mg Oxycodone HCl (Oxycodone) 5 - 10 mg PO Q4H PRN PRN Reason: Pain Last Admin: 08/31/17 02:30 Dose: 10 mg Oxycodone HCl (Oxycontin) 20 mg PO Q12HR [facility] Last Admin: 08/31/17 08:08 Dose: 20 mg Ranitidine Hcl 150 (Mg 1 Tab) 1 each PO ASDIRECTED PRN PRN Reason: Heartburn Scopolamine (Transderm-Scop) 1.5 mg TRDERM ONARRIVE [facility] Last Admin: 08/29/17 10:25 Dose: 1.5 mg Sodium Chloride (Saline Flush) 10 ml FLUSH ASDIRECTED PRN PRN Reason: Keep Vein Open Sodium Chloride (Saline Flush) 2.5 ml FLUSH ASDIRECTED PRN PRN Reason: Keep Vein Open Discontinued Medications Cefazolin Sodium (Ancef) Confirm Administered Dose 2 gm .ROUTE .STK-MED ONE Stop: 08/29/17 10:40 Ephedrine Sulfate (Ephedrine Sulfate) Confirm Administered Dose 50 mg .ROUTE .STK-MED ONE Stop: 08/29/17 11:18 Famotidine (Pepcid) Confirm Administered Dose 20 mg .ROUTE .STK-MED ONE Stop: 08/29/17 11:22 Last Admin: 08/29/17 13:42 Dose: Not Given Fentanyl (Sublimaze) Confirm Administered Dose 100 mcg .ROUTE .STK-MED ONE Stop: 08/29/17 09:13 Lactated Ringer's (Ringers, Lactated) 1,000 mls @ 100 mls/hr IV ASDIRECTED [facility] Last Admin: 08/30/17 01:37 Dose: 100 mls/hr Acetaminophen (Ofirmev) Confirm Administered Dose 100 mls @ as directed IV .STK- MED ONE Stop: 08/29/17 09:36 Sodium Chloride (Normal Saline) Confirm Administered Dose 20 mls @ as directed .ROUTE .STK-MED ONE Stop: 08/29/17 10:40 Acetaminophen 1,000 mg/ Premix 100 mls @ 400 mls/hr IV Q6H [facility] Stop: 08/29/17 22:44 Last Infusion: 08/29/17 21:46 Dose: Infused Cefazolin Sodium/Dextrose 2 gm (/ Premix) 50 mls @ 100 mls/hr IV Q8H [facility] Stop: 08/30/17 02:59 Last Infusion: 08/30/17 02:51 Dose: Infused Midazolam HCl (Versed 1 Mg/Ml) Confirm Administered Dose 2 mg .ROUTE .STK-MED ONE Stop: 08/29/17 09:13 Ondansetron HCl (Zofran) Confirm Administered Dose 4 mg .ROUTE .STK-MED ONE Stop: 08/29/17 09:13 Propofol (Diprivan 20 Ml) Confirm Administered Dose 200 mg .ROUTE .STK-MED ONE Stop: 08/29/17 09:13 Propofol (Diprivan 20 Ml) Confirm Administered Dose 200 mg .ROUTE .STK-MED ONE Stop: 08/29/17 11:46 Tranexamic Acid (Cyklokapron) Confirm Administered Dose 4,000 mg .ROUTE .STK- MED ONE Stop: 08/29/17 09:07 - Exam Wound/Incisions: Healing Well, Drainage (moderate sanguinous drainage to dressing.) General: Alert, Oriented Cardiovascular: Regular Rate, Regular Rhythm Extremities: Other (RLE - incision clean/dry/no active drainage. at/ehl/gastroc 5/5, dp 2+, sensation intact distally) Physical Findings Comment:: vss, afeb hgb 11.0 - Problem List Review Problem List Initiated/Reviewed/Updated: Yes - My Orders Last 24 Hours: Active Orders 24 hr Category Date Time Status Urinary Catheter Removal [RC] Per Unit Routine Care 08/30/17 08:45 Active HEMOGLOBIN/HEMATOCRIT,HH [HEME] DAILY Lab 09/01/17 06:00 Ordered Apixaban [Eliquis] Med 08/30/17 09:00 Active 5 mg PO DAILY Multivitamins [Tab-A-Rafaela] Med 08/30/17 09:00 Active 1 tab PO DAILY Sodium Chloride 0.9% [Saline Flush] Med 08/30/17 08:45 Active 10 ml FLUSH ASDIRECTED PRN Sodium Chloride 0.9% [Saline Flush] Med 08/30/17 08:45 Active 2.5 ml FLUSH ASDIRECTED PRN Convert IV to Saline Lock [OM.PC] Routine Oth 08/30/17 08:45 Ordered Medication Orders Acetaminophen (Tylenol Extra Strength) 1,000 mg PO Q6H [facility] Last Admin: 08/31/17 05:30 Dose: 1,000 mg Admin: 08/30/17 21:30 Dose: 1,000 mg Admin: 08/30/17 16:14 Dose: 1,000 mg Admin: 08/30/17 10:06 Dose: 1,000 mg Admin: 08/30/17 04:37 Dose: 1,000 mg Al Hydroxide/Mg Hydroxide (Mag-Al Plus) 30 ml PO Q4H PRN PRN Reason: indigestion Apixaban (Eliquis) 5 mg PO DAILY [facility] Last Admin: 08/31/17 08:08 Dose: 5 mg Admin: 08/30/17 07:59 Dose: 5 mg Docusate Sodium (Colace) 100 mg PO BID [facility] Last Admin: 08/31/17 08:08 Dose: 100 mg Admin: 08/30/17 20:21 Dose: 100 mg Admin: 08/30/17 07:59 Dose: 100 mg Admin: 08/29/17 21:12 Dose: 100 mg Famotidine (Pepcid) 40 mg IVPUSH ONARRIVE [facility] Last Admin: 08/29/17 10:15 Dose: 40 mg Hydromorphone HCl (Dilaudid) 0.5 - 1 mg IVPUSH Q3H PRN PRN Reason: Pain Last Admin: 08/30/17 10:48 Dose: 1 mg Admin: 08/30/17 06:45 Dose: 0.5 mg Admin: 08/29/17 22:50 Dose: 1 mg Acetaminophen 1,000 mg/ Premix 100 mls @ 400 mls/hr IV ONARRIVE [facility] Last Admin: 08/29/17 10:15 Dose: 400 mls/hr Cefazolin Sodium/Dextrose 2 gm (/ Premix) 50 mls @ 100 mls/hr IV ONCALL [facility] Ropivacaine 49.25 ml/Ketorolac Tromethamine 30 mg/Epinephrine HCl 0.5 mg/ Clonidine HCl 80 mcg/ Sodium Chloride 100 mls @ 50 mls/min INJECT ASDIRECTED [facility] Tranexamic Acid 4,000 mg/ (Sodium Chloride) 140 mls @ 600 mls/hr IV ASDIRECTED [facility] Ketorolac Tromethamine (Toradol) 30 mg IVPUSH ONARRIVE [facility] Metoprolol Succinate (Toprol Xl) 25 mg PO ACBREAKFAST [facility] Last Admin: 08/31/17 08:09 Dose: 25 mg Admin: 08/30/17 06:32 Dose: Not Given Multivitamins/Minerals/Vitamin C (Tab-A-Rafaela) 1 tab PO DAILY [facility] Last Admin: 08/31/17 08:08 Dose: 1 tab Admin: 08/30/17 07:59 Dose: 1 tab Ondansetron HCl (Zofran) 4 mg IV Q6HR PRN PRN Reason: NAUSEA/VOMITING Last Admin: 08/31/17 02:34 Dose: 4 mg Oxycodone HCl (Oxycontin) 20 mg PO ONARRIVE [facility] Last Admin: 08/29/17 10:24 Dose: 20 mg Oxycodone HCl (Oxycodone) 5 - 10 mg PO Q4H PRN PRN Reason: Pain Last Admin: 08/31/17 02:30 Dose: 10 mg Admin: 08/30/17 21:29 Dose: 10 mg Admin: 08/30/17 14:22 Dose: 10 mg Admin: 08/30/17 10:00 Dose: 10 mg Admin: 08/30/17 03:04 Dose: 10 mg Oxycodone HCl (Oxycontin) 20 mg PO Q12HR [facility] Last Admin: 08/31/17 08:08 Dose: 20 mg Admin: 08/30/17 20:21 Dose: 20 mg Admin: 08/30/17 07:59 Dose: 20 mg Admin: 08/29/17 21:12 Dose: 20 mg Ranitidine Hcl 150 (Mg 1 Tab) 1 each PO ASDIRECTED PRN PRN Reason: Heartburn Scopolamine (Transderm-Scop) 1.5 mg TRDERM ONARRIVE [facility] Last Admin: 08/29/17 10:25 Dose: 1.5 mg Sodium Chloride (Saline Flush) 10 ml FLUSH ASDIRECTED PRN PRN Reason: Keep Vein Open Sodium Chloride (Saline Flush) 2.5 ml FLUSH ASDIRECTED PRN PRN Reason: Keep Vein Open - Assessment Assessment (Free Text/Narrative):: POD#2 R TKA acute posthemorrhagic anemia - Plan Plan (Free Text/Narrative):: dressing changed d/ch to home today home d/ch rx on chart walker rx on chart d/ch summary #[id number] <Arely Bautista R - Last Filed: 08/31/17 09:29> - Patient Data Vitals - Most Recent: Last Vital Signs Temp 98 F 08/31/17 08:30 Pulse 70 08/31/17 08:30 Resp 20 08/31/17 08:30 BP 111/55 L 08/31/17 08:30 Pulse Ox 95 08/31/17 08:30 I&O - Last 24 Hours: Intake & Output 08/30/17 08/31/17 08/31/17 22:59 06:59 14:59 Intake Total 540 1400 Output Total 350 1000 Balance 190 400 Lab Results Last 24 Hrs: Laboratory Results - last 24 hr 08/31/17 Range/Units 06:04 Hgb 11.0 L (12.0-16.0) g/dL Hct 33.1 L (36.0-46.0) % Med Orders - Current: Current Medications Acetaminophen (Tylenol Extra Strength) 1,000 mg PO Q6H [facility] Last Admin: 08/31/17 05:30 Dose: 1,000 mg Al Hydroxide/Mg Hydroxide (Mag-Al Plus) 30 ml PO Q4H PRN PRN Reason: indigestion Apixaban (Eliquis) 5 mg PO DAILY [facility] Last Admin: 08/31/17 08:08 Dose: 5 mg Docusate Sodium (Colace) 100 mg PO BID [facility] Last Admin: 08/31/17 08:08 Dose: 100 mg Famotidine (Pepcid) 40 mg IVPUSH ONARRIVE [facility] Last Admin: 08/29/17 10:15 Dose: 40 mg Hydromorphone HCl (Dilaudid) 0.5 - 1 mg IVPUSH Q3H PRN PRN Reason: Pain Last Admin: 08/30/17 10:48 Dose: 1 mg Acetaminophen 1,000 mg/ Premix 100 mls @ 400 mls/hr IV ONARRIVE [facility] Last Admin: 08/29/17 10:15 Dose: 400 mls/hr Cefazolin Sodium/Dextrose 2 gm (/ Premix) 50 mls @ 100 mls/hr IV ONCALL [facility] Ropivacaine 49.25 ml/Ketorolac Tromethamine 30 mg/Epinephrine HCl 0.5 mg/ Clonidine HCl 80 mcg/ Sodium Chloride 100 mls @ 50 mls/min INJECT ASDIRECTED [facility] Tranexamic Acid 4,000 mg/ (Sodium Chloride) 140 mls @ 600 mls/hr IV ASDIRECTED [facility] Ketorolac Tromethamine (Toradol) 30 mg IVPUSH ONARRIVE [facility] Metoprolol Succinate (Toprol Xl) 25 mg PO ACBREAKFAST [facility] Last Admin: 08/31/17 08:09 Dose: 25 mg Multivitamins/Minerals/Vitamin C (Tab-A-Rafaela) 1 tab PO DAILY [facility] Last Admin: 08/31/17 08:08 Dose: 1 tab Ondansetron HCl (Zofran) 4 mg IV Q6HR PRN PRN Reason: NAUSEA/VOMITING Last Admin: 08/31/17 02:34 Dose: 4 mg Oxycodone HCl (Oxycontin) 20 mg PO ONARRIVE [facility] Last Admin: 08/29/17 10:24 Dose: 20 mg Oxycodone HCl (Oxycodone) 5 - 10 mg PO Q4H PRN PRN Reason: Pain Last Admin: 08/31/17 02:30 Dose: 10 mg Oxycodone HCl (Oxycontin) 20 mg PO Q12HR [facility] Last Admin: 08/31/17 08:08 Dose: 20 mg Ranitidine Hcl 150 (Mg 1 Tab) 1 each PO ASDIRECTED PRN PRN Reason: Heartburn Scopolamine (Transderm-Scop) 1.5 mg TRDERM ONARRIVE [facility] Last Admin: 08/29/17 10:25 Dose: 1.5 mg Sodium Chloride (Saline Flush) 10 ml FLUSH ASDIRECTED PRN PRN Reason: Keep Vein Open Sodium Chloride (Saline Flush) 2.5 ml FLUSH ASDIRECTED PRN PRN Reason: Keep Vein Open Discontinued Medications Cefazolin Sodium (Ancef) Confirm Administered Dose 2 gm .ROUTE .STK-MED ONE Stop: 08/29/17 10:40 Ephedrine Sulfate (Ephedrine Sulfate) Confirm Administered Dose 50 mg .ROUTE .STK-MED ONE Stop: 08/29/17 11:18 Famotidine (Pepcid) Confirm Administered Dose 20 mg .ROUTE .STK-MED ONE Stop: 08/29/17 11:22 Last Admin: 08/29/17 13:42 Dose: Not Given Fentanyl (Sublimaze) Confirm Administered Dose 100 mcg .ROUTE .STK-MED ONE Stop: 08/29/17 09:13 Lactated Ringer's (Ringers, Lactated) 1,000 mls @ 100 mls/hr IV ASDIRECTED [facility] Last Admin: 08/30/17 01:37 Dose: 100 mls/hr Acetaminophen (Ofirmev) Confirm Administered Dose 100 mls @ as directed IV .STK- MED ONE Stop: 08/29/17 09:36 Sodium Chloride (Normal Saline) Confirm Administered Dose 20 mls @ as directed .ROUTE .STK-MED ONE Stop: 08/29/17 10:40 Acetaminophen 1,000 mg/ Premix 100 mls @ 400 mls/hr IV Q6H [facility] Stop: 08/29/17 22:44 Last Infusion: 08/29/17 21:46 Dose: Infused Cefazolin Sodium/Dextrose 2 gm (/ Premix) 50 mls @ 100 mls/hr IV Q8H [facility] Stop: 08/30/17 02:59 Last Infusion: 08/30/17 02:51 Dose: Infused Midazolam HCl (Versed 1 Mg/Ml) Confirm Administered Dose 2 mg .ROUTE .STK-MED ONE Stop: 08/29/17 09:13 Ondansetron HCl (Zofran) Confirm Administered Dose 4 mg .ROUTE .STK-MED ONE Stop: 08/29/17 09:13 Propofol (Diprivan 20 Ml) Confirm Administered Dose 200 mg .ROUTE .STK-MED ONE Stop: 08/29/17 09:13 Propofol (Diprivan 20 Ml) Confirm Administered Dose 200 mg .ROUTE .STK-MED ONE Stop: 08/29/17 11:46 Tranexamic Acid (Cyklokapron) Confirm Administered Dose 4,000 mg .ROUTE .STK- MED ONE Stop: 08/29/17 09:07 - Problem List Review Problem List Initiated/Reviewed/Updated: Yes - My Orders Last 24 Hours: Active Orders 24 hr Category Date Time Status Ready for Discharge [RC] PER UNIT ROUTINE Care 08/31/17 09:14 Active Urinary Catheter Removal [RC] Per Unit Routine Care 08/30/17 08:45 Active HEMOGLOBIN/HEMATOCRIT,HH [HEME] DAILY Lab 09/01/17 06:00 Ordered Apixaban [Eliquis] Med 08/30/17 09:00 Active 5 mg PO DAILY Multivitamins [Tab-A-Rafaela] Med 08/30/17 09:00 Active 1 tab PO DAILY Sodium Chloride 0.9% [Saline Flush] Med 08/30/17 08:45 Active 10 ml FLUSH ASDIRECTED PRN Sodium Chloride 0.9% [Saline Flush] Med 08/30/17 08:45 Active 2.5 ml FLUSH ASDIRECTED PRN Convert IV to Saline Lock [OM.PC] Routine Oth 08/30/17 08:45 Ordered Medication Orders Acetaminophen (Tylenol Extra Strength) 1,000 mg PO Q6H [facility] Last Admin: 08/31/17 05:30 Dose: 1,000 mg Admin: 08/30/17 21:30 Dose: 1,000 mg Admin: 08/30/17 16:14 Dose: 1,000 mg Admin: 08/30/17 10:06 Dose: 1,000 mg Admin: 08/30/17 04:37 Dose: 1,000 mg Al Hydroxide/Mg Hydroxide (Mag-Al Plus) 30 ml PO Q4H PRN PRN Reason: indigestion Apixaban (Eliquis) 5 mg PO DAILY [facility] Last Admin: 08/31/17 08:08 Dose: 5 mg Admin: 08/30/17 07:59 Dose: 5 mg Docusate Sodium (Colace) 100 mg PO BID [facility] Last Admin: 08/31/17 08:08 Dose: 100 mg Admin: 08/30/17 20:21 Dose: 100 mg Admin: 08/30/17 07:59 Dose: 100 mg Admin: 08/29/17 21:12 Dose: 100 mg Famotidine (Pepcid) 40 mg IVPUSH ONARRIVE [facility] Last Admin: 08/29/17 10:15 Dose: 40 mg Hydromorphone HCl (Dilaudid) 0.5 - 1 mg IVPUSH Q3H PRN PRN Reason: Pain Last Admin: 08/30/17 10:48 Dose: 1 mg Admin: 08/30/17 06:45 Dose: 0.5 mg Admin: 08/29/17 22:50 Dose: 1 mg Acetaminophen 1,000 mg/ Premix 100 mls @ 400 mls/hr IV ONARRIVE [facility] Last Admin: 08/29/17 10:15 Dose: 400 mls/hr Cefazolin Sodium/Dextrose 2 gm (/ Premix) 50 mls @ 100 mls/hr IV ONCALL [facility] Ropivacaine 49.25 ml/Ketorolac Tromethamine 30 mg/Epinephrine HCl 0.5 mg/ Clonidine HCl 80 mcg/ Sodium Chloride 100 mls @ 50 mls/min INJECT ASDIRECTED [facility] Tranexamic Acid 4,000 mg/ (Sodium Chloride) 140 mls @ 600 mls/hr IV ASDIRECTED [facility] Ketorolac Tromethamine (Toradol) 30 mg IVPUSH ONARRIVE [facility] Metoprolol Succinate (Toprol Xl) 25 mg PO ACBREAKFAST [facility] Last Admin: 08/31/17 08:09 Dose: 25 mg Admin: 08/30/17 06:32 Dose: Not Given Multivitamins/Minerals/Vitamin C (Tab-A-Rafaela) 1 tab PO DAILY [facility] Last Admin: 08/31/17 08:08 Dose: 1 tab Admin: 08/30/17 07:59 Dose: 1 tab Ondansetron HCl (Zofran) 4 mg IV Q6HR PRN PRN Reason: NAUSEA/VOMITING Last Admin: 08/31/17 02:34 Dose: 4 mg Oxycodone HCl (Oxycontin) 20 mg PO ONARRIVE [facility] Last Admin: 08/29/17 10:24 Dose: 20 mg Oxycodone HCl (Oxycodone) 5 - 10 mg PO Q4H PRN PRN Reason: Pain Last Admin: 08/31/17 02:30 Dose: 10 mg Admin: 08/30/17 21:29 Dose: 10 mg Admin: 08/30/17 14:22 Dose: 10 mg Admin: 08/30/17 10:00 Dose: 10 mg Admin: 08/30/17 03:04 Dose: 10 mg Oxycodone HCl (Oxycontin) 20 mg PO Q12HR [facility] Last Admin: 08/31/17 08:08 Dose: 20 mg Admin: 08/30/17 20:21 Dose: 20 mg Admin: 08/30/17 07:59 Dose: 20 mg Admin: 08/29/17 21:12 Dose: 20 mg Ranitidine Hcl 150 (Mg 1 Tab) 1 each PO ASDIRECTED PRN PRN Reason: Heartburn Scopolamine (Transderm-Scop) 1.5 mg TRDERM ONARRIVE [facility] Last Admin: 08/29/17 10:25 Dose: 1.5 mg Sodium Chloride (Saline Flush) 10 ml FLUSH ASDIRECTED PRN PRN Reason: Keep Vein Open Sodium Chloride (Saline Flush) 2.5 ml FLUSH ASDIRECTED PRN PRN Reason: Keep Vein Open - Plan Plan (Free Text/Narrative):: 0900 Patient seen and examined. Agree with above note. Patient sitting up in chair. Pain controlled with meds. Progressing with PT. Hgb stable. Dressing dry/intact. No calf TTP. NVI 1. plan to discharge home later today 2. continue PT 3. Eloquis for DVT prophylaxis 4. patient agrees with plan rrk
[2017-08-31 11:50] VITALS: BP 120/71
--- NOTE | 2017-09-01 15:34 | DISCH ---
DATE OF DISCHARGE: 08/31/2017 PRIMARY CARE PHYSICIAN: Tico Gray DO ADMITTING DIAGNOSIS: Degenerative joint disease, right knee, tricompartmental. OTHER MEDICAL DIAGNOSES: 1. Morbid obesity, status post gastric bypass. 2. Hypertension. 3. Eczema. DISCHARGE DIAGNOSES: 1. Degenerative joint disease, right knee, tricompartmental. 2. Morbid obesity, status post gastric bypass. 3. Hypertension. 4. Eczema. 5. Acute posthemorrhagic anemia. BRIEF HISTORY: No is a 47-year-old female who has had progressive complaints of right knee pain. She has tried and failed conservative treatment. She did undergo gastric bypass surgery approximately 1 year ago, has lost nearly 100 pounds, and did not have an improvement in her pain. At that time, surgical treatment was recommended. On August 29, 2017, the patient underwent a right total knee arthroplasty using standard instrumentation by Dr. Arely Bautista. This was done under spinal anesthesia with sedation. Estimated blood loss was 50 mL. Tourniquet time was 43 minutes. There were no known complications. Upon completion of the procedure, the patient was transferred to the PACU and subsequently to Med/Surg for postoperative care. HOSPITAL COURSE: Postoperatively, the patient did well. She received 2 doses of Ancef postoperatively for a total 24 hours of antibiotic coverage. Physical Therapy followed her through her hospital stay. Her pain was controlled with oral pain medications. Aspirin 325 mg was started on postoperative day #1 as DVT prophylaxis. Her vital signs have been stable. She has been afebrile. Her hemoglobin on the morning of August 31 is 11.0. She is tolerating oral intake. She is ambulating well with a wheeled walker. She feels comfortable with discharge to home. DISCHARGE MEDICATIONS: 1. OxyContin 20 mg. 2. Oxycodone 5 mg. 3. Tylenol Extra Strength 500 mg. 4. Colace 100 mg. 5. Eliquis 5 mg. DISCHARGE INSTRUCTIONS: 1. Follow up in clinic in 10 to 14 days from the date of procedure. This appointment has been made for the patient. 2. Outpatient physical therapy 2 to 3 times per week for 4 to 6 weeks. 3. She may not drive for 6 weeks. 4. She is to change her dressings on Monday, September 04, 2017. She is to place a new Aquacel dressing and leave that in place until followup. 5. Polar Care to the right knee as needed. 6. SUGEY hose, on in the morning, off in the evening. For a complete medication reconciliation and discharge instructions, please refer back to the patient's EHR. If she has questions or concerns prior to followup, she has been advised to return to clinic or call. MALCOLM MIRZA /[id number] FRANCOISE
== END 2017-08-31 13:30 | disposition home or self-care (01) | DRG 302 ==
LOC: MW.MS 08:36
PROVIDERS: ADMIT Orthopaedic Surgery; ATTEND Orthopaedic Surgery
PROC: 0SRC0J9 Replacement of Right Knee Joint with Synthetic Substitute, Cemented, Open Approach (ICD-10-PCS; principal; 2017-08-29)
DX: M17.11 Unilateral primary osteoarthritis, right knee (principal); M94.261 Chondromalacia, right knee; I10 Essential (primary) hypertension; K21.9 Gastro-esophageal reflux disease without esophagitis; Z68.42 Body mass index [BMI] 45.0-49.9, adult; E66.9 Obesity, unspecified; Z91.040 Latex allergy status; Z88.8 Allergy status to other drugs, medicaments and biological substances; Z79.899 Other long term (current) drug therapy; Z87.891 Personal history of nicotine dependence
CPT/HCPCS: 01402; 36415; 73560-26-RT; 73560-RT; 81025; 85014; 85018; 86850; 86900; 86901; 88304; 88311; 97110-GP; 97116-GP; 97161-GP; 97530-GP; A9270-GY; C1713; C1776; J0171; J0690; J0735; J1170; J1885; J2250; J2405; J2704; J2795; J3010; J7050; J7120

== ENCOUNTER 2020-05-13 11:37 | Emergency (ER) | payer BC ==
[2020-05-13] MEDS ORDERED: Sodium Chloride 0.9% 10 ML Syringe FLUSH PRN (11:38)
[2020-05-13] MEDS ORDERED: Sodium Chloride 0.9% 2.5 ML Syringe FLUSH PRN (11:38)
--- NOTE | 2020-05-13 11:42 | EDM.PDOC ---
ED [facility] GENERAL MEDICAL PROBLEM - General Chief Complaint: Chest Pain Stated Complaint: CHEST PAIN Time Seen by Provider: 05/13/20 11:37 Source of Information: Reports: Patient, Old Records History Limitations: Reports: No Limitations - History of Present Illness INITIAL COMMENTS - FREE TEXT/NARRATIVE: 50-year-old female past medical history of hypertension, hyperlipidemia, and G ERD presenting with chest pain. Medical history mentions Eliquis anticoagulation but patient has no history of this, no known history of prior venous thromboembolism or atrial fibrillation. She reports a 4-day history of substernal chest pain described as "sharp", nonradiating, and constant. Nothing makes it better or worse. Chest pain started in the context of an oral argument on Tuesday evening with a family member. Rated as 8 out of 10. Intermittently taking Tylenol without much relief. Denies any associated diaphoresis, emesis, radiation, exertional chest pain or shortness of breath. No fever, cough, hemoptysis, leg swelling or pain. Denies any history of venous thromboembolism, active cancer, recent long travel or surgery or immobilization, history of hormonal medication use. No recent chest wall trauma, no history of recent vomiting. No history of coronary artery disease, stenting, or CABG. ROS: A 10-point review of systems was negative, except as noted in the HPI (or in the ROS section of this note). Past medical history: Reviewed, no additional pertinent history. Surgical history: Reviewed in system, no additional pertinent history. Social history: Reviewed in system, no additional pertinent history. Family history: Reviewed in system, no additional pertinent history. PHYSICAL EXAM Vital signs reviewed. Nursing notes reviewed. Constitutional: Awake, alert, non-distressed. Head: Normocephalic, atraumatic. Eyes: EOMI, conjunctiva normal, no discharge, no scleral icterus. Ears, Nose, Throat: External ears and nose normal, moist oral mucosa. Cardiovascular: 2+ radial pulses bilaterally, capillary refill less than 2 seconds. 2+ systolic murmur. RRR. No rubs or gallops. Pulmonary: normal work of breathing, no accessory muscle use. CTA BL. Abdomen/GI: Soft, nontender, nondistended, no guarding or rigidity, no masses. Musculoskeletal: No deformities. Integumentary: Appropriate color for ethnicity, warm, dry, no pallor or jaundice, no rash. Neurologic: Alert, answering questions appropriately, normal speech, no facial droop, moving all extremities well. Psychiatric: Appropriate mood and affect, normal thought process. chest Pain Score (Numeric/FACES): 8 - Related Data Allergies Allergy/AdvReac Type Severity Reaction Status Date / Time latex Allergy Rash Verified 05/13/20 11:43 naproxen [From Naprosyn] Allergy Rash Verified 05/13/20 11:43 Ear drop solution (unknown Allergy Itching Uncoded 10/27/16 10:00 name) Home Meds: Home Meds Metoprolol Succinate [Toprol XL] 25 mg PO QPM 06/26/15 [History] Multivitamin [Multi-Vitamin Daily] 1 tab PO DAILY 06/26/15 [History] Ascorbic Acid [Vitamin C] 500 mg PO BID 08/25/17 [History] Biotin 5,000 mcg PO QPM 08/25/17 [History] Cyanocobalamin (Vitamin B12) [Vitamin B12] 1,000 mcg PO DAILY 08/25/17 [History] Lysine HCl [l-Lysine] 2 tab PO BID 08/25/17 [History] Aspirin [Halfprin] 81 mg PO QPM 05/13/20 [History] Calcium Carbonate [Calcium] 500 mg PO 0900,1300 05/13/20 [History] Past Medical History - Past Health History Medical/Surgical History: Denies Medical/Surgical History HEENT History: Reports: Other (See Below) Other HEENT History: Diminished hearing bilaterally Cardiovascular History: Reports: High Cholesterol, Hypertension Other Cardiovascular History: Hx: chest pain last summer, added medication Metoprolol. 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 Musculoskeletal History: Reports: Back Pain, Chronic Other Musculoskeletal History: Low back pain Neurological History: Reports: None Psychiatric History: Reports: Anxiety Endocrine/Metabolic History: Reports: Obesity/BMI 30+ Hematologic History: Reports: None Immunologic History: Reports: None Oncologic (Cancer) History: Reports: None Dermatologic History: Reports: Eczema Other Dermatologic History: eczema in the past - Infectious Disease History Infectious Disease History: Reports: None - Past Surgical History Head Surgeries/Procedures: Reports: None HEENT Surgical History: Reports: None Cardiovascular Surgical History: Reports: None Respiratory Surgical History: Reports: None GI Surgical History: Reports: Bariatric Procedure Female Surgical History: Reports: None Endocrine Surgical History: Reports: None Neurological Surgical History: Reports: None Musculoskeletal Surgical History: Reports: Carpal Tunnel, Knee Replacement Oncologic Surgical History: Reports: None Dermatological Surgical History: Reports: None Social & Family History - Family History Family Medical History: Noncontributory - Tobacco Use Smoking Status *Q: Former Smoker Used Tobacco, but Quit: Yes Month/Year Tobacco Last Used: 10 years - Caffeine Use Caffeine Use: Reports: None - Recreational Drug Use Recreational Drug Use: No ED ROS GENERAL - Review of Systems Review Of Systems: See Below ED EXAM, GENERAL - Physical Exam Exam: See Below EKG INTERPRETATION EKG Interpretation Comments: 12-Lead ECG Interpretation Acquired: 11:43 AM Rhythm: Sinus bradycardia Rate: 56 bpm Herman: Normal Intervals: Normal Ectopy: None Ischemic Changes: None apparent RV Strain: No obvious RV strain pattern. ST Segments/T-Waves: T wave inversions in lead III Course - Vital Signs Text/Narrative:: Patient hemodynamically stable, afebrile, well-appearing, looks nontoxic. Initially hypertensive, blood pressure improved spontaneously without any intervention. CBC reassuring. D-dimer elevated at 0.75. Electrolytes and renal function reassuring. Troponin testing is negative. CT pulmonary angiography is negative, as are x-rays of the chest. Differential diagnosis includes but is not limited to: ACS, pulmonary embolism, aortic dissection, acute systolic heart failure, pneumonia, pneumothorax, pericardial effusion, pleural effusion, pericarditis, endocarditis, esophageal rupture, GERD, drug-induced chest pain, chest wall pain, and many others. I considered a multitude of differential diagnoses for the patient's chest pain, including: Acute coronary syndrome: the ECGs do not demonstrate acute ischemia and troponin testing is negative. They have a HEART score of 2. Negative troponin testing with 4 days of constant chest discomfort. Pulmonary embolism: negative CT pulmonary angiogram study. Thoracic aortic dissection: equal radial pulses, no radiation of pain to the back, no history of connective tissue disease. The mediastinum is not widened on radiographic studies, no evidence of dissection on angiographic imaging. Acute decompensated heart failure/pulmonary edema: no significant respiratory distress (hypoxia, tachypnea), no significant lower extremity edema, no evidence of edema on imaging, no JVD. Pneumothorax/pleural effusion: no evidence of such on imaging, no fever or sputum production, no tachypnea or hypoxia. Pericardial effusion: no friction rub, no JVD, no evidence on imaging. Fritz/pericarditis: no fever, no friction rub, negative troponin testing, non- diagnostic ECG. Critical aortic stenosis: no history of aortic stenosis, no significant murmur. Endocarditis: no fever, no splinter hemorrhages noted, no murmur, non-toxic appearing. Esophageal rupture: no fever, no history of recurrent emesis, no subcutaneous emphysema to the neck or chest, non-toxic appearing. Zoster/shingles: no evidence of rash to chest wall. GERD, musculoskeletal chest pain, pleurisy, non-specific chest pain, et cetera. The patient presented with chest pain of uncertain etiology. Based on their history, lab analysis, and ECG, I see no evidence at this time for a malignant etiology for the patient's chest pain. Patient has had a thorough work-up at this point, which is negative. Etiology of her pain is not entirely clear but there is no evidence of an acute emergency medical condition or malignant process which requires specialist consultation, further testing, or admission to the hospital. Plan: Patient is stable to discharge home with outpatient primary care clinic follow-up. Strict emergency department return precautions were provided, patient indicated understanding. All questions were answered prior to departure. Discharged in good condition. HEART Score for Major Cardiac Events RESULT SUMMARY: 2 points Low Score (0-3 points) Risk of MACE of 0.9-1.7%. INPUTS: History > 0 = Slightly suspicious EKG > 0 = Normal Age > 1 = 45-64 Risk factors > 1 = 1-2 risk factors Initial troponin > 0 = ?normal limit Last Recorded V/S: Last Vital Signs Temp 35.7 C L 05/13/20 11:41 Pulse 51 L 05/13/20 13:41 Resp 17 05/13/20 13:41 BP 155/67 H 05/13/20 13:41 Pulse Ox 97 05/13/20 13:41 - Orders/Labs/Meds Orders: Active Orders 24 hr Category Date Time Status Saline Lock Insert [OM.PC] Stat Oth 05/13/20 11:38 Ordered Labs: Laboratory Tests 05/13/20 05/13/20 05/13/20 Range/Units 11:50 11:50 11:50 WBC 5.99 (4.0-11.0) K/uL RBC 4.35 (4.30-5.90) M/uL Hgb 13.2 (12.0-16.0) g/dL Hct 40.0 (36.0-46.0) % MCV 92.0 (80.0-98.0) fL MCH 30.3 (27.0-32.0) pg MCHC 33.0 (31.0-37.0) g/dL RDW Std Deviation 43.3 (28.0-62.0) fl RDW Coeff of Javier 13 (11.0-15.0) % Plt Count 202 (150-400) K/uL MPV 10.70 (7.40-12.00) fL Neut % (Auto) 63.1 (48.0-80.0) % Lymph % (Auto) 25.5 (16.0-40.0) % [place] % (Auto) 7.8 (0.0-15.0) % Eos % (Auto) 2.3 (0.0-7.0) % Baso % (Auto) 1.3 (0.0-1.5) % Neut # (Auto) 3.8 (1.4-5.7) K/uL Lymph # (Auto) 1.5 (0.6-2.4) K/uL [place] # (Auto) 0.5 (0.0-0.8) K/uL Eos # (Auto) 0.1 (0.0-0.7) K/uL Baso # (Auto) 0.1 (0.0-0.1) K/uL Nucleated RBC % 0.0 /100WBC Nucleated RBCs # 0 K/uL D-Dimer, Quantitative (0.0-0.50) mg/L FEU Sodium 142 (136-145) mmol/L Potassium 4.1 (3.5-5.1) mmol/L Chloride 106 (98-107) mmol/L Carbon Dioxide 29.1 (21.0-32.0) mmol/L BUN 16 (7.0-18.0) mg/dL Creatinine 0.6 (0.6-1.0) mg/dL Est Cr Clr Drug Dosing 94.85 mL/min Estimated GFR (MDRD) > 60.0 ml/min Glucose 87 (74-106) mg/dL Calcium 9.4 (8.5-10.1) mg/dL Total Bilirubin 0.3 (0.2-1.0) mg/dL AST 16 (15-37) IU/L ALT 24 (14-63) IU/L Alkaline Phosphatase 89 (46-116) U/L Troponin I < 0.050 (0.000-0.056) ng/mL Total Protein 6.8 (6.4-8.2) g/dL Albumin 3.9 (3.4-5.0) g/dL Globulin 2.9 (2.6-4.0) g/dL Albumin/Globulin Ratio 1.3 (0.9-1.6) HCG, Qual NEGATIVE (NEG) 05/13/20 Range/Units 11:50 WBC (4.0-11.0) K/uL RBC (4.30-5.90) M/uL Hgb (12.0-16.0) g/dL Hct (36.0-46.0) % MCV (80.0-98.0) fL MCH (27.0-32.0) pg MCHC (31.0-37.0) g/dL RDW Std Deviation (28.0-62.0) fl RDW Coeff of Javier (11.0-15.0) % Plt Count (150-400) K/uL MPV (7.40-12.00) fL Neut % (Auto) (48.0-80.0) % Lymph % (Auto) (16.0-40.0) % [place] % (Auto) (0.0-15.0) % Eos % (Auto) (0.0-7.0) % Baso % (Auto) (0.0-1.5) % Neut # (Auto) (1.4-5.7) K/uL Lymph # (Auto) (0.6-2.4) K/uL [place] # (Auto) (0.0-0.8) K/uL Eos # (Auto) (0.0-0.7) K/uL Baso # (Auto) (0.0-0.1) K/uL Nucleated RBC % /100WBC Nucleated RBCs # K/uL D-Dimer, Quantitative 0.75 H (0.0-0.50) mg/L FEU Sodium (136-145) mmol/L Potassium (3.5-5.1) mmol/L Chloride (98-107) mmol/L Carbon Dioxide (21.0-32.0) mmol/L BUN (7.0-18.0) mg/dL Creatinine (0.6-1.0) mg/dL Est Cr Clr Drug Dosing mL/min Estimated GFR (MDRD) ml/min Glucose (74-106) mg/dL Calcium (8.5-10.1) mg/dL Total Bilirubin (0.2-1.0) mg/dL AST (15-37) IU/L ALT (14-63) IU/L Alkaline Phosphatase (46-116) U/L Troponin I (0.000-0.056) ng/mL Total Protein (6.4-8.2) g/dL Albumin (3.4-5.0) g/dL Globulin (2.6-4.0) g/dL Albumin/Globulin Ratio (0.9-1.6) HCG, Qual (NEG) Meds: Medications Discontinued Medications Generic Name Dose Route Start Last Admin Trade Name Freq PRN Reason Stop Dose Admin Acetaminophen 1,000 mg 05/13/20 12:05/13/20 12:21 Tylenol Extra Strength PO 05/13/20 12:02 1,000 mg ONETIME ONE Administration Aspirin 325 mg 05/13/20 12:05/13/20 12:22 Aspirin PO 05/13/20 12:02 325 mg ONETIME ONE Administration Sodium Chloride 10 ml 05/13/20 11:38 05/13/20 11:47 Saline Flush FLUSH 10 ml ASDIRECTED PRN Administration Keep Vein Open Sodium Chloride 2.5 ml 05/13/20 11:38 05/13/20 11:47 Saline Flush FLUSH 2.5 ml ASDIRECTED PRN Administration Keep Vein Open Departure - Departure Time of Disposition: 13:30 Disposition: Home, Self-Care 01 Condition: Good Clinical Impression: Atypical chest pain Instructions: Nonspecific Chest Pain, Adult Referrals: [facility] - Family Practice [Provider Group] - 1 Week (For follow-up of your symptoms.) Forms: ED Department Discharge Additional Instructions: You were seen in the emergency department for chest pain. At this point, your EKG, blood work, x-rays, and CT scan all look reassuring. There is no evidence of a heart attack, a blood clot in your lungs, pneumonia, collapsed lung, or any other emergency condition at this point. Often times the people come to the emergency department chest pain, we do not find anything abnormal in their testing. I am going to let you go home today and follow-up with your prior medical doctor, which I recommend in the next week. You can take [id number] Tylenol or Motrin as directed on the package for pain. Warning signs to come back to the ER include worsening chest pain, shortness of breath, fever, or any other new or worsening symptoms. Please return the emergency department immediately if your symptoms worsen or if you feel worse. Thank you for choosing the [facility] emergency department in [place] for your medical needs today. It was a pleasure caring for you. The following information is given to patients seen in the emergency department who are being discharged. This information is to outline your options for follow-up care. We provide all patients seen in our emergency department with a follow-up referral. The need for follow-up, as well as the timing and circumstances, are variable depending upon the specifics of your emergency department visit. If you don't have a primary care physician on staff, we will provide you with a referral. We always advise you to contact your personal physician following an emergency department visit to inform them of the circumstance of the visit and for follow-up with them and/or the need for any referrals to a consulting specialist. The emergency department will also refer you to a specialist when appropriate. This referral assures that you have the opportunity for follow-up care with a specialist. All of these measure are taken in an effort to provide you with optimal care, which includes your follow-up. Under all circumstances we always encourage you to contact your private physician who remains a resource for coordinating your care. When calling for follow-up care, please make the office aware that this follow-up is from your recent emergency room visit. If for any reason you are refused follow-up, please contact the [facility] Emergency Department at and asked to speak to the emergency department charge nurse. If you do not have a primary care physician that is caring for you, you can contact these clinics below to set up an appointment to establish care: [facility] - Primary Care [address] [place] [id number] [facility] [address] [place] [id number] Sepsis Event Note (ED) - Focused Exam Vital Signs: Vital Signs Temp Pulse Resp BP Pulse Ox 05/13/20 13:41 51 L 17 155/67 H 97 05/13/20 13:04 49 L 18 123/104 H 97 05/13/20 11:41 35.7 C L 61 18 172/87 H 98 - My Orders Last 24 Hours: My Active Orders 05/13/20 11:38 Saline Lock Insert [OM.PC] Stat - Assessment/Plan Last 24 Hours: My Active Orders 05/13/20 11:38 Saline Lock Insert [OM.PC] Stat
[2020-05-13] MEDS ORDERED: Aspirin 325 MG Tab PO ONE (12:01)
[2020-05-13] MEDS ORDERED: Acetaminophen 500 MG Tab PO ONE (12:01)
[2020-05-13 12:23] LABS: BLOOD UREA NITROGEN,BUN 16 mg/dL (7.0-18.0); CARBON DIOXIDE,CO2 29.1 mmol/L (21.0-32.0); CHLORIDE,CL 106 mmol/L (98-107); GLUCOSE RANDOM 87 mg/dL (74-106); POTASSIUM,K 4.1 mmol/L (3.5-5.1); SODIUM,NA 142 mmol/L (136-145)
--- NOTE | 2020-05-13 12:56 | CR ---
Chest: 2 views of the chest were obtained. Comparison: Prior chest x-ray of 08/20/19. Heart size at the upper limits of normal which is stable. Tortuous thoracic aorta is seen. Lungs are clear no acute parenchymal change. Scattered disc space narrowing throughout the spine with mild scattered endplate osteophytes are seen. Impression: 1. Nothing acute is seen. 2. Stable findings as noted above. Diagnostic code #2 This report was dictated in MDT
--- NOTE | 2020-05-13 13:26 | CT ---
CT chest Technique: Multiple axial sections through the chest were obtained. Intravenous contrast was utilized. Study has been performed as a pulmonary angiogram protocol. Findings: Pulmonary arteries are well opacified. No filling defects are seen to indicate pulmonary embolism. Aorta shows no aneurysm. Mediastinum and hilar region show no adenopathy. No pericardial thickening is seen. Heart size is slightly enlarged. Visualized upper abdominal structures shows no discrete abnormality. Lungs show no acute parenchymal change. Bone window settings were reviewed which shows scattered disc space narrowing within the thoracic spine with scattered endplate osteophytes. No acute osseous finding is appreciated. Impression: 1. No findings of pulmonary embolism. 2. Nothing acute is appreciated on CT study of the chest. Diagnostic code #2 This report was dictated in MDT
[2020-05-13 13:42] VITALS: BP 155/67; PULSE 51
== END 2020-05-13 13:43 | disposition home or self-care (01) ==
LOC: MW.ED 11:37
DX: R07.89 Other chest pain (principal); I10 Essential (primary) hypertension; E66.9 Obesity, unspecified; Z68.35 Body mass index [BMI] 35.0-35.9, adult; Z91.040 Latex allergy status; Z91.09 Other allergy status, other than to drugs and biological substances; Z79.899 Other long term (current) drug therapy; Z79.82 Long term (current) use of aspirin; Z88.8 Allergy status to other drugs, medicaments and biological substances; Z87.891 Personal history of nicotine dependence
CPT/HCPCS: 71046; 71275; 80053; 84484; 84703; 85025; 85379; 93005; 99285; A9270; 99283

== ENCOUNTER 2023-06-24 20:41 | Emergency (ER) | payer BC ==
[2023-06-25] MEDS ORDERED: Acetaminophen 500 MG Tab PO ONE
[2023-06-25] MEDS ORDERED: Sodium Chloride 0.9% 2.5 ML Syringe FLUSH PRN
[2023-06-25] MEDS ORDERED: Sodium Chloride 0.9% 10 ML Syringe FLUSH PRN
[2023-06-25 00:22] LABS: BASOPHILS PERCENT AUTO 0.4 % (0.0-1.5); EOSINOPHILS ABSOLUTE AUTO 0.1 K/uL (0.0-0.7); EOSINOPHILS PERCENT AUTO 1.3 % (0.0-7.0); HEMATOCRIT 40.9 % (36.0-46.0); HEMOGLOBIN 13.4 g/dL (12.0-16.0); LYMPHOCYTES ABSOLUTE AUTO 1.9 K/uL (0.6-2.4); LYMPHOCYTES PERCENT AUTO 18.4 % (16.0-40.0); MEAN CORPUSCULAR HEMOGLOBIN 30.2 pg (27.0-32.0); MEAN CORPUSCULAR HGB CONC 32.8 g/dL (31.0-37.0); MEAN CORPUSCULAR VOLUME 92.3 fL (80.0-98.0); MONOCYTES ABSOLUTE AUTO 0.8 K/uL (0.0-0.8); MONOCYTES PERCENT AUTO 7.7 % (0.0-15.0); NEUTROPHILS ABSOLUTE AUTO 7.3 K/uL (1.4-5.7); NEUTROPHILS PERCENT AUTO 72.2 % (48.0-80.0); PLATELET COUNT,PLT 212 K/uL (150-400); RED BLOOD CELL COUNT 4.43 M/uL (4.30-5.90); WHITE BLOOD CELL COUNT,WBC 10.11 K/uL (4.0-11.0)
[2023-06-25 00:50] LABS: A/G RATIO 1.2 (0.9-1.6); ALANINE AMINOTRANSFERASE,ALT 25 IU/L (14-63); ALKALINE PHOSPHATASE 117 U/L (46-116); ASPARTATE AMNIOTRANSFERASE,AST 13 IU/L (15-37); BILIRUBIN TOTAL 0.3 mg/dL (0.2-1.0); BLOOD UREA NITROGEN,BUN 22 mg/dL (7.0-18.0); CHLORIDE,CL 102 mmol/L (98-107); CREATININE 0.7 mg/dL (0.6-1.0); EST CRCL DRUG DOSING (CG) 78.65 mL/min; GLUCOSE RANDOM 99 mg/dL (74-106); LIPASE 35 U/L (16-77); POTASSIUM,K 3.6 mmol/L (3.5-5.1); PROTEIN TOTAL,TP 7.4 g/dL (6.4-8.2); SODIUM,NA 138 mmol/L (136-145)
[2023-06-25 00:51] LABS: ESTIMATED GFR 105 mL/min (>60)
[2023-06-25] MEDS ORDERED: Oxymetazoline 0.05% Nasal Spray 30 ML Bottle NAS ONE (01:16)
[2023-06-25 01:28] VITALS: BP 161/98; PULSE 55
== END 2023-06-25 01:32 | disposition home or self-care (01) ==
LOC: MW.ED 20:41
DX: S00.33XA Contusion of nose, initial encounter (principal); R04.0 Epistaxis; M25.511 Pain in right shoulder; R07.9 Chest pain, unspecified; E66.9 Obesity, unspecified; I10 Essential (primary) hypertension; Z79.899 Other long term (current) drug therapy; Z91.040 Latex allergy status; Z88.8 Allergy status to other drugs, medicaments and biological substances; W01.198A Fall on same level from slipping, tripping and stumbling with subsequent striking against other object, initial encounter; Y92.009 Unspecified place in unspecified non-institutional (private) residence as the place of occurrence of the external cause
CPT/HCPCS: 36415; 70450; 70486; 71046; 72125; 73030; 80053; 83690; 84484; 85025; 93005; 99284; A9270; 93010; 99283

== ENCOUNTER 2024-03-25 13:51 | Emergency (ER) | payer BC, MEDICARE ==
[2024-03-25] MEDS: Acetaminophen 325 MG Tab PO ONE (14:43)
[2024-03-25] MEDS: Diphtheria,Pertussis(Acell),Tetanus Vaccine 0.5 ML Syringe IM ONE (14:43)
[2024-03-25 16:00] VITALS: BP 165/76; PULSE 69
== END 2024-03-25 15:05 | disposition home or self-care (01) ==
LOC: MW.ED 13:51
DX: S01.01XA Laceration without foreign body of scalp, initial encounter (principal); S49.91XA Unspecified injury of right shoulder and upper arm, initial encounter; I10 Essential (primary) hypertension; E66.9 Obesity, unspecified; Z23 Encounter for immunization; Z79.899 Other long term (current) drug therapy; Z91.040 Latex allergy status; Z88.8 Allergy status to other drugs, medicaments and biological substances; Z88.6 Allergy status to analgesic agent; Z68.41 Body mass index [BMI] 40.0-44.9, adult; Z75.8 Other problems related to medical facilities and other health care; W01.198A Fall on same level from slipping, tripping and stumbling with subsequent striking against other object, initial encounter; Y92.511 Restaurant or cafe as the place of occurrence of the external cause
CPT/HCPCS: 12001; 71045; 73030; 90471; 90715; 99283; A9270; 99282

== ENCOUNTER 2025-03-18 20:38 | Emergency (ER) | payer OTHER, BC ==
[2025-03-18 23:01] VITALS: BP 157/80; PULSE 76
== END 2025-03-18 23:01 | disposition home or self-care (01) ==
LOC: MW.ED 20:38
DX: S80.11XA Contusion of right lower leg, initial encounter (principal); S80.12XA Contusion of left lower leg, initial encounter; I10 Essential (primary) hypertension; E78.00 Pure hypercholesterolemia, unspecified; K21.9 Gastro-esophageal reflux disease without esophagitis; E66.9 Obesity, unspecified; Z87.891 Personal history of nicotine dependence; Z79.899 Other long term (current) drug therapy; Z91.040 Latex allergy status; Z88.5 Allergy status to narcotic agent; Z88.8 Allergy status to other drugs, medicaments and biological substances; V49.40XA Driver injured in collision with unspecified motor vehicles in traffic accident, initial encounter; Y92.410 Unspecified street and highway as the place of occurrence of the external cause
CPT/HCPCS: 735602650; 73560-50; 99283; 99284